=== PATIENT | male | born 1940 | race Caucasian/White ===

== ENCOUNTER → 2016-06-02 | Outpatient (REF) | payer MEDICARE, OTHER ==
[2016-06-02 18:41] LABS: ALBUMIN 4.1 GM/DL (3.2-5.2); ALBUMIN/GLOBULIN RATIO 1.32 (1.00-1.93); BILIRUBIN,TOTAL 0.6 MG/DL (0.2-1.0); CALCIUM LEVEL 8.7 MG/DL (8.8-10.2); CREATININE FOR GFR 1.29 MG/DL (0.70-1.30); GLOMERULAR FILTRATION RATE 57.8 (>42); POTASSIUM SERUM 4.9 MEQ/L (3.5-5.1); TOTAL PROTEIN 7.2 GM/DL (6.4-8.2)
== END ==
LOC: M SFHCCAPE 07:04
PROVIDERS: ATTEND Nurse Practitioner
DX: I10 Essential (primary) hypertension (principal)

== ENCOUNTER → 2016-11-30 | Outpatient (REF) | payer MEDICARE, OTHER ==
[2016-11-30 17:41] LABS: ALBUMIN 3.8 GM/DL (3.2-5.2); ALBUMIN/GLOBULIN RATIO 1.12 (1.00-1.93); BILIRUBIN,TOTAL 0.3 MG/DL (0.2-1.0); CALCIUM LEVEL 8.9 MG/DL (8.8-10.2); CREATININE FOR GFR 1.29 MG/DL (0.70-1.30); GLOMERULAR FILTRATION RATE 57.8 (>42); POTASSIUM SERUM 4.2 MEQ/L (3.5-5.1); TOTAL PROTEIN 7.2 GM/DL (6.4-8.2)
[2016-11-30 18:11] LABS: BASO % 0.6 % (0.0-1.0); EOS # 0.2 K/mm3 (0.0-0.50); EOS % 3.4 % (0.0-3.0); LARGE UNSTAINED CELL # 0.2 K/mm3 (0.0-0.4); LARGE UNSTAINED CELL % 2.8 % (0.0-4.0); LYMPH # 1.6 K/mm3 (1.5-4.5); LYMPH % 20.4 % (24.0-44.0); MEAN CORPUSCULAR HEMOGLOBIN 28.2 pg (27.0-33.0); MEAN CORPUSCULAR HGB CONC 33.3 g/dl (32.0-36.5); MEAN CORPUSCULAR VOLUME 84.7 fl (80.0-96.0); MONO # 0.7 K/mm3 (0.0-0.8); MONO % 9.8 % (0.0-5.0); NEUTROPHILS # 4.3 K/mm3 (1.8-7.7); PLATELET COUNT, AUTOMATED 270 k/mm3 (150-450); RED CELL DISTRIBUTION WIDTH 13.2 % (11.5-14.5); WHITE BLOOD COUNT 6.9 K/mm3 (4.0-10.0)
== END ==
LOC: M SFHCCAPE 07:17
PROVIDERS: ATTEND Physician Assistant
DX: I10 Essential (primary) hypertension (principal); Z12.5 Encounter for screening for malignant neoplasm of prostate
CPT/HCPCS: 36415; 80053; 80061; 84443; 85025; G0103

== ENCOUNTER → 2016-12-03 | Outpatient (REF) | payer MEDICARE, OTHER | LOC: M SMT 17:28 | PROVIDERS: ATTEND Urology | DX: R97.20 Elevated prostate specific antigen [PSA] (principal); Z79.899 Other long term (current) drug therapy | CPT/HCPCS: 81001; 87086; G0463 ==

== ENCOUNTER → 2017-01-15 | Outpatient (CLI) | payer MEDICARE, OTHER ==
--- NOTE | 2017-01-15 13:09 | REP ---
TRANSRECTAL ULTRASOUND PROSTATE WITH ULTRASOUND GUIDANCE FOR PROSTATE BIOPSY: Real-time sonographic evaluation of the prostate performed utilizing transrectal probe. Size of the gland is 4.7 x 5.3 x 5.2 cm for a total volume of 54.9 mL. There are nodular areas in the prostate, on the right four are identified ranging between 6 and 8 mm in diameter. On the left a nodular areas measures 7 x 5 mm. Seminal vesicles appear symmetrical. Ultrasound guidance was provided for Dr. Car who performed ultrasound guided biopsy of the prostate. Signed by Eze Goodwin MD 01/15/2017 05:49 P
== END ==
LOC: M SMT PRO 09:56
PROVIDERS: ATTEND Urology
DX: C61 Malignant neoplasm of prostate (principal)
CPT/HCPCS: 55700; 76872; 76942; G0416

== ENCOUNTER → 2017-01-22 | Outpatient (CLI) | payer MEDICARE, OTHER ==
--- NOTE | 2017-01-22 14:56 | REP ---
CHEST, TWO VIEWS: HISTORY: Prostate carcinoma. The lungs are clear. The heart is normal in size. The pulmonary vasculature is normal in appearance. Degenerative change is present in the thoracic spine. IMPRESSION: No acute disease. Unreviewed
[2017-01-22 17:05] LABS: CALCIUM LEVEL 9.2 MG/DL (8.8-10.2); CREATININE FOR GFR 1.54 MG/DL (0.70-1.30); GLOMERULAR FILTRATION RATE 47.1 (>42); POTASSIUM SERUM 5.1 MEQ/L (3.5-5.1)
== END ==
LOC: M SMT 11:20
PROVIDERS: ATTEND Nurse Practitioner Women's Health
DX: C61 Malignant neoplasm of prostate (principal)
CPT/HCPCS: 36415; 71020; 80048; G0463

== ENCOUNTER → 2017-01-29 | Outpatient (CLI) | payer MEDICARE, OTHER ==
[~2017-01-29] MED LIST: ISOVUE-370 76% 100ML VIAL (Q9967) As Ordered ONE
--- NOTE | 2017-01-29 11:17 | REP ---
CT ABDOMEN AND PELVIS WITHOUT WITH CONTRAST: 01/29/2017. Clinical history: Prostate carcinoma. Prior ruptured abdominal aortic aneurysm 2013. Comparison: 11/08/2013. Technique: Precontrast scanning followed by bolus of 100 ml Isovue 370 and scanning through the abdomen pelvis. Coronal and sagittal reconstructions provided. Delayed images through the abdomen. Orthopedic metal artifact reduction algorithm utilized due to a left total hip arthroplasty. Findings: CT abdomen: The lung bases show minor dependent atelectatic change and fibrosis without effusion, nodule, infiltrate or mass. Heart is not enlarged. Left atrium is marginal in size. No pericardial thickening or effusion. No hiatal hernia. I see no fatty infiltration of the liver. No hepatosplenomegaly, focal hepatic mass or intrahepatic biliary dilatation. There is one tiny hypodensity in the right lobe of the liver either small cyst or hemangioma, unchanged. The gallbladder now shows a few tiny layering hyperdense stones about 3 mm size. Adrenal glands are normal. Pancreas shows no mass or ductal dilatation. Kidneys show lobation. There is no stone on the precontrast images. I see no hydronephrosis, cyst, solid renal mass or perinephric fluid. Ureters are not dilated and show normal course to the bladder. On image 116 of series 301, images 76 and 77 of series 307, on image 67 and 68 of series 309 there is a oval 7.7 mm calcification. It superimposes perfectly over the distal ureter which is not dilated above it. It is at the bladder wall and suggests a distal ureteral stone at the UVJ. Small bowel loops are unremarkable. The colon shows stool and gas scattered without signs of colitis or diverticulitis in the abdomen proper. Lung windows reveal no sign of free air or perforation in the abdomen and pelvis. An elongated xyphoid process is noted anteriorly in the midline of the lower chest and upper abdomen, otherwise normal. The abdominal aorta shows evidence of an aortobiiliac graft without aneurysm. Multiple surgical clips. The lumen is filled with contrast. No periaortic or other retroperitoneal lymphadenopathy. Previous aneurysm repair and no evidence of a leak repair. CT pelvis. Bladder unremarkable. [place] artifact from the left total hip arthroplasty noted. There are degenerative changes at the right hip with acetabular subchondral cysts. loss of joint space and articular cartilage with rim osteophytes acetabulum and femoral head. Iliac bones intact. SI joints symmetric. Sacrum intact. Degenerative changes at the symphysis pubis without acute fracture of the pubic rami. There is old posttraumatic change of the superior pubic ramus on the left. No bladder wall thickening or mass. No stone in the bladder. There is a 7.7 mm oval stone at the UVJ on the right perfectly superimposed over the ureter course and therefore felt to be a nonobstructing distal ureteral stone. That ureter is otherwise normal. There is no ventral or inguinal hernia, although the omental fat distends the right inguinal canal. No inguinal adenopathy. Prostate is enlarged. It indents the bladder base and measures 5.2 cm transverse x 4.3 cm AP x 5.4 cm vertically. No other finding. Bone window review of all slices shows no destructive lesion that would suggest bony metastatic lesions in the hips, pelvis, sacrum, spine or ribs. Impression: 1. Enlarged prostate in this patient with known prostate carcinoma. It indents the bladder base. 2. No bony metastatic lesions are noted. There are degenerative changes throughout the spine and right hip and symphysis pubis. 3. Repair of the large leaking abdominal aortic aneurysm on the study 3 years ago with the graft well maintained and without leak or thrombus. It is widely patent. 4. No retroperitoneal or other intra-abdominal/pelvic adenopathy. 5. Cholelithiasis. 6. No hydronephrosis, hydroureter or renal stone disease. There appears to be a 7.7 mm stone at the UVJ on the right perfectly superimpose the course of the ureter but no ureteral dilatation. I suspect nonobstructing stone. Signed by Ross Baldwin MD 01/29/2017 05:31 P
--- NOTE | 2017-01-29 15:06 | REP ---
Whole body radionuclide bone scan: History: Prostate carcinoma. No comparison scintigraphy. Technique: 21.9 mCi technetium 99m MDP is injected and standard whole body imaging was acquired. Scintigraphic findings: There is uptake in bilateral kidneys and in the urinary bladder. There is photopenia in the area of the left hip prosthesis as expected. There is arthritic uptake bilaterally in the knees, wrists, and shoulders. Some degenerative uptake is seen in the thoracic spine. There is no evidence to suggest skeletal metastatic disease. Impression: No evidence of bony metastasis. Signed by David Rubin MD 01/29/2017 04:50 P
== END ==
LOC: M RAD 09:18
PROVIDERS: ATTEND Nurse Practitioner Women's Health
DX: C61 Malignant neoplasm of prostate (principal); K80.20 Calculus of gallbladder without cholecystitis without obstruction
CPT/HCPCS: 74178; 78306; A9503; Q9967

== ENCOUNTER → 2017-03-03 | Outpatient (REF) | payer MEDICARE, OTHER ==
[2017-03-03 16:53] LABS: ALBUMIN 4.2 GM/DL (3.2-5.2); ALBUMIN/GLOBULIN RATIO 1.14 (1.00-1.93); BILIRUBIN,TOTAL 0.5 MG/DL (0.2-1.0); CALCIUM LEVEL 8.8 MG/DL (8.8-10.2); CREATININE FOR GFR 1.4 MG/DL (0.70-1.30); GLOMERULAR FILTRATION RATE 52.6 (>42); POTASSIUM SERUM 4.8 MEQ/L (3.5-5.1); TOTAL PROTEIN 7.9 GM/DL (6.4-8.2)
[2017-03-03 17:49] LABS: BASO # 0.1 10^3/uL (0.0-0.2); BASO % 0.7 % (0.0-1.0); EOS # 0.3 10^3/uL (0.0-0.50); EOS % 3.1 % (0.0-3.0); IMMATURE GRANULOCYTE % 1.4 % (0-0); LYMPH # 1.2 10^3/uL (1.5-4.5); LYMPH % 14.5 % (24.0-44.0); MEAN CORPUSCULAR HEMOGLOBIN 27.5 pg (27.0-33.0); MEAN CORPUSCULAR HGB CONC 33.1 g/dl (32.0-36.5); MEAN CORPUSCULAR VOLUME 83.1 fl (80.0-96.0); MONO # 0.9 10^3/uL (0.0-0.8); MONO % 10.9 % (0.0-5.0); NEUTROPHILS # 5.7 10^3/uL (1.8-7.7); NEUTROPHILS % 69.4 % (36.0-66.0); PLATELET COUNT, AUTOMATED 304 10^3/uL (150-450); RED CELL DISTRIBUTION WIDTH 13.2 % (11.5-14.5); WHITE BLOOD COUNT 8.1 10^3/uL (4.0-10.0)
== END ==
LOC: M SFHCCAPE 07:02
PROVIDERS: ATTEND Physician Assistant
DX: I10 Essential (primary) hypertension (principal)

== ENCOUNTER → 2017-03-04 | Outpatient (REF) | payer MEDICARE, OTHER ==
[~2017-03-04] MED LIST changes: +AMLO10TA PO; +ASPI325T PO; +CENTTAB PO; +FURO40TA2 PO; -ISOVUE-370 76% 100ML VIAL (Q9967) As Ordered ONE; +LISI10TA4 PO; +LOVA40TA PO; +METO25TA4 PO
[2017-03-04 18:27] LABS: CREATININE FOR GFR 1.44 MG/DL (0.70-1.30); GLOMERULAR FILTRATION RATE 50.9 (>42); POTASSIUM SERUM 4.9 MEQ/L (3.5-5.1)
[2017-03-04 18:32] LABS: INR 0.96
[2017-03-04 19:46] LABS: MEAN CORPUSCULAR HEMOGLOBIN 26.9 pg (27.0-33.0); MEAN CORPUSCULAR HGB CONC 32.3 g/dl (32.0-36.5); MEAN CORPUSCULAR VOLUME 83.3 fl (80.0-96.0); PLATELET COUNT, AUTOMATED 313 10^3/uL (150-450); RED CELL DISTRIBUTION WIDTH 13.2 % (11.5-14.5); WHITE BLOOD COUNT 8.3 10^3/uL (4.0-10.0)
== END ==
LOC: M LABSMT 07:10
PROVIDERS: ATTEND Urology
DX: Z01.818 Encounter for other preprocedural examination (principal); N20.1 Calculus of ureter; C61 Malignant neoplasm of prostate; I65.29 Occlusion and stenosis of unspecified carotid artery

== ENCOUNTER → 2017-03-10 | Day surgery (SDC) | payer MEDICARE, OTHER ==
[~2017-03-10] VITALS: Ht 167.6 cm; Wt 102.1 kg
[~2017-03-10] MED LIST changes: +ACETAMINOPHEN 650MG ER TAB (TYLENOL ARTHRITIS) PO PRN; +CIPR500T3 PO; +CIPROFLOXACIN 500 MG TAB PO SCH; +CONRAY-60 60% 50ML VIAL (Q9961) As Ordered ONE; +LIDOCAINE 1% MDV 20ML VIAL SQ PRN; +LIDOCAINE 2% INJ 100 MG/5 ML SDV (FOR ANES.) As Ordered ONE; +LR 1,000 ML IV ONE; +LR 1,000 ML IV SCH; +MIDAZOLAM INJ 2 MG/2 ML VIAL (J2250) As Ordered ONE; +NORCO, ANEXSIA 5/325MG TABLET (HYDROcodone/ACETAMINOPHEN) PO PRN; +ONDANSETRON 4MG/2ML VIAL (J2405) As Ordered ONE; +ONDANSETRON 4MG/2ML VIAL (J2405) IV PRN; +PROPOFOL 200 MG/20 ML VIAL As Ordered ONE; +SEVOFLURANE INHAL SOLN 250 ML BTL As Ordered ONE; +TYLE650T35 PO; +ceFAZolin 2 GM/D5W 50 ML IV BAG (J0690 PER 500MG) As Ordered ONE; +fentaNYL 100 MCG/2 ML INJECTION (J3010) As Ordered ONE; +fentaNYL 100 MCG/2 ML INJECTION (J3010) IV PRN
[2017-03-10 15:30] VITALS: BP 128/86
--- NOTE | 2017-03-10 20:21 | REP ---
Retrograde pyelogram: Two views. History: Right stent placement. 25 seconds of fluoroscopy time is reported. Findings: A sequence of two last image hold fluoroscopic spot radiographs of the right abdomen document right ureteral contrast injection and double pigtail stent placement. Signed by David Rubin MD 03/11/2017 08:07 A
--- NOTE | 2017-03-12 19:08 | RO ---
DATE OF PROCEDURE: 03/10/2017 PREPROCEDURE DIAGNOSIS: Right distal ureteral stone. POSTPROCEDURE DIAGNOSIS: Right distal ureteral stone. 7 mm right distal ureteral stone. PROCEDURE: Cystoscopy, plus right retrograde pyelogram, plus right ureteroscopy - semirigid, plus laser stone lithotripsy, Holmium laser, plus basket extraction of stones, plus right double J stent placement, #6-[place]can [place] Cook. SURGEON: Ubaldo Car MD PUSH BUTTON SWITCH ASSEMBLER: None. ANESTHESIA: General. COMPLICATIONS: None. ESTIMATED BLOOD LOSS: Minimal. HISTORY OF PRESENT ILLNESS: A 76-year-old male patient with a history of prostate cancer. During the staging and ordering a CT scan of the abdomen and pelvis, a 7 mm stone was found in the right distal ureter with mild hydronephrosis. The patient had no pain at all. For this reason, we actually consented him for cystoscopy, plus right retrograde pyelogram, plus right ureteroscopy, plus laser stone lithotripsy, plus basket extraction of stones, plus right double J stent placement. The patient has consented, signed the consent form, and we are taking him to surgery today. DESCRIPTION OF PROCEDURE: In a patient under general anesthesia in supine modified low lithotomy position, after prepping and draping the area of concern, which included the entire genitalia and abdomen, we introduced the #22-Moroccan cystoscope with 30-degree lens under videoendoscopic guidance. The fossa navicularis, penile urethra, bulbar urethra and membranous urethra were totally normal. Prostatic urethra had lateral lobes touching and rising small middle lobe. Both ureteral orifices were seen. There were no tumors in the bladder, no stones in the bladder, no foreign objects. At that moment in time, we grabbed a #5-Moroccan Pollack catheter, catheterized the right ureteral orifice and placed a guidewire up to the kidney. We took the Pollack catheter out and cystoscope out and then proceeded to actually place a semirigid ureteroscope, #7-Moroccan in diameter. Following the guidewire, we went into the ureteral orifice and the distal ureteral orifice. In the distal ureter, we found a 7 mm stone. We then took the guidewire out and passed a 300 Micron probe, holmium laser and lasered the stone into multiple fragments. We then took the laser probe out and with a 1.8 Moroccan ZeroTip basket, we actually grabbed the stones one by one and put into the bladder. Once the ureter was free of stones, we actually took the ureteroscope out, placed the cystoscope, drained the bladder, with an Ellik evacuator took all the pieces out. The stones were sent for permanent biochemical analysis. We then passed a Pollack catheter and performed a retrograde to see if there were some other stones. There were no other stones. At that moment in time, we passed a guidewire up to the kidney, took the Pollack catheter out and passed a double J stent, #6-[place]can [place] Cook up to the kidney. Once the stent was in good position, we took the guidewire out. We could see the curl in the kidney, curl in the bladder. We then emptied the bladder and took the cystoscope out. PLAN: The patient will go home today with antibiotic pain medication, followup in 1 week at [facility] for removal of right double J stent. We will have to also schedule management of his prostate cancer, which is pending. GLEN
== END | disposition home or self-care (01) ==
LOC: M SDC 10:35
PROVIDERS: ATTEND Urology
DX: N20.1 Calculus of ureter (principal); N13.30 Unspecified hydronephrosis; I10 Essential (primary) hypertension; K21.9 Gastro-esophageal reflux disease without esophagitis; E78.5 Hyperlipidemia, unspecified; I65.29 Occlusion and stenosis of unspecified carotid artery; M17.0 Bilateral primary osteoarthritis of knee; M19.079 Primary osteoarthritis, unspecified ankle and foot; N40.1 Benign prostatic hyperplasia with lower urinary tract symptoms; Z79.899 Other long term (current) drug therapy; Z79.82 Long term (current) use of aspirin
CPT/HCPCS: 36415; 52356; 74420; 82360; 86850; 86900; 86901; 88300; C1769; C2617; J0690; J2250; J2405; J3010; Q9961

== ENCOUNTER 2017-03-14 15:10 | Emergency (ER) | payer MEDICARE, OTHER ==
[2017-03-14] MEDS: NS 1,000 ML IV (16:15)
[2017-03-14 16:49] LABS: BASO % 0.6 % (0.0-1.0); EOS # 0.4 10^3/uL (0.0-0.50); EOS % 5.7 % (0.0-3.0); IMMATURE GRANULOCYTE # 0.1 10^3/uL (0-0); IMMATURE GRANULOCYTE % 0.7 % (0-0); LYMPH # 1.1 10^3/uL (1.5-4.5); LYMPH % 16.7 % (24.0-44.0); MEAN CORPUSCULAR HEMOGLOBIN 27.3 pg (27.0-33.0); MEAN CORPUSCULAR HGB CONC 33.2 g/dl (32.0-36.5); MEAN CORPUSCULAR VOLUME 82.2 fl (80.0-96.0); MONO # 0.8 10^3/uL (0.0-0.8); MONO % 11.8 % (0.0-5.0); NEUTROPHILS # 4.3 10^3/uL (1.8-7.7); NEUTROPHILS % 64.5 % (36.0-66.0); PLATELET COUNT, AUTOMATED 236 10^3/uL (150-450); RED CELL DISTRIBUTION WIDTH 13.3 % (11.5-14.5); WHITE BLOOD COUNT 6.7 10^3/uL (4.0-10.0)
[2017-03-14 16:55] LABS: BLOOD URINE MANUAL RFX POSITIVE (NEGATIVE); NITRITE, URINE MANUAL RFX NEGATIVE (NEGATIVE)
[2017-03-14 16:56] LABS: BACTERIA, URINE NONE SEEN; HYALINE CAST, URINE NONE SEEN /lpf (0-1); MICROSCOPIC EXAM PERFORMED; RBC, URINE TNTC /hpf (0-3); SQUAMOUS EPITHELIAL CELL URINE NONE SEEN /hpf (SMALL AMT); WBC, URINE NONE SEEN /hpf (0-3)
[2017-03-14 18:28] LABS: ALBUMIN/GLOBULIN RATIO 1.07 (1.00-1.93); ALKALINE PHOSPHATASE 83 U/L (45-117); ALT/SGPT 24 U/L (12-78); ANION GAP 8 MEQ/L (8-16); AST/SGOT 37 U/L (7-37); BILIRUBIN,DIRECT < 0.1 MG/DL (0.0-0.2); BILIRUBIN,TOTAL 0.2 MG/DL (0.2-1.0); BLOOD UREA NITROGEN 22 MG/DL (7-18); CALCIUM LEVEL 7.4 MG/DL (8.8-10.2); CARBON DIOXIDE LEVEL 22 MEQ/L (21-32); CHLORIDE LEVEL 111 MEQ/L (98-107); CREATININE FOR GFR 1.17 MG/DL (0.70-1.30); GLOMERULAR FILTRATION RATE > 60.0 (>42); GLUCOSE, FASTING 91 MG/DL (83-110); POTASSIUM SERUM 4.5 MEQ/L (3.5-5.1); SODIUM LEVEL 141 MEQ/L (136-145); TOTAL PROTEIN 5.8 GM/DL (6.4-8.2)
== END 2017-03-14 18:53 | disposition home or self-care (01) ==
LOC: M ED 15:10
DX: R31.0 Gross hematuria (principal); C61 Malignant neoplasm of prostate
CPT/HCPCS: 80076

== ENCOUNTER → 2017-03-30 | Outpatient (REF) | payer MEDICARE, OTHER ==
[2017-03-30 18:11] LABS: APPEARANCE, URINE CLEAR (CLEAR); BACTERIA, URINE AUTO NEGATIVE (NEGATIVE); BILIRUBIN, URINE AUTO NEGATIVE (NEGATIVE); BLOOD, URINE BLOOD NEGATIVE (NEGATIVE); COLOR, URINE YELLOW (YELLOW); GLUCOSE, URINE (UA) AUTO NEGATIVE (NEGATIVE); KETONE, URINE AUTO NEGATIVE (NEGATIVE); LEUKOCYTE ESTERASE, URINE AUTO NEGATIVE (NEGATIVE); MUCUS, URINE SMALL (NEGATIVE); NITRITE, URINE AUTO NEGATIVE (NEGATIVE); PROTEIN, URINE AUTO NEGATIVE (NEGATIVE); RBC, URINE AUTO 1 /HPF (0-3); SPECIFIC GRAVITY URINE AUTO 1.019 (1.002-1.035); SQUAMOUS EPITHELIAL CELL UR AU 0 /HPF (0-6); UROBILINOGEN, URINE AUTO 0.2 mg/dL (0.0-2.0); WBC, URINE AUTO 1 /HPF (0-3)
== END ==
LOC: M SFHCCAPE 13:45
DX: Z46.6 Encounter for fitting and adjustment of urinary device (principal)
CPT/HCPCS: 81001

== ENCOUNTER 2017-04-17 06:37 | Emergency (ER) | payer MEDICARE, OTHER ==
[2017-04-17] MEDS: KETOROLAC 60 MG/2 ML VIAL (J1885) IM (07:43)
[2017-04-17] MEDS: CYCLOBENZAPRINE 10 MG TAB PO (07:43)
== END 2017-04-17 10:27 | disposition home or self-care (01) ==
LOC: M ED 06:37
DX: S29.002A Unspecified injury of muscle and tendon of back wall of thorax, initial encounter (principal); X58.XXXA Exposure to other specified factors, initial encounter; Y92.89 Other specified places as the place of occurrence of the external cause; I10 Essential (primary) hypertension; E78.5 Hyperlipidemia, unspecified; C61 Malignant neoplasm of prostate; Z87.442 Personal history of urinary calculi; Z79.899 Other long term (current) drug therapy
CPT/HCPCS: J1885

== ENCOUNTER → 2017-04-22 | Outpatient (CLI) | payer MEDICARE, OTHER | LOC: M ONCR 10:20 | DX: C61 Malignant neoplasm of prostate (principal) | CPT/HCPCS: G0463 ==

== ENCOUNTER → 2017-05-03 | Outpatient (REF) | payer MEDICARE, OTHER ==
[2017-05-06 00:07] LABS: PSA % FREE 13.2 % (.); PSA FREE 1.31 ng/mL; PSA TOTAL 9.9 ng/mL (0.0-4.0); TESTOSTERONE FREE (DIRECT) 3.4 pg/mL (6.6-18.1)
== END ==
LOC: M SFHCCAPE 07:04
DX: C61 Malignant neoplasm of prostate (principal)
CPT/HCPCS: 84403

== ENCOUNTER → 2017-05-14 | Outpatient (CLI) | payer MEDICARE, OTHER | LOC: M SMT PRO 09:22 | DX: C61 Malignant neoplasm of prostate (principal); Z79.899 Other long term (current) drug therapy | CPT/HCPCS: 55876; A4648 ==

== ENCOUNTER 2017-05-27 14:19 | Outpatient (RCR) | payer MEDICARE, OTHER | END 2017-06-19 | LOC: M ONCR 14:19 | DX: C61 Malignant neoplasm of prostate (principal) | CPT/HCPCS: 77300 ==

== ENCOUNTER → 2017-05-27 | Outpatient (CLI) | payer MEDICARE, OTHER ==
[2017-05-27 14:56] LABS: HEMATOCRIT 38.2 % (42.0-52.0); HEMOGLOBIN 12.4 g/dl (14.0-18.0); MEAN CORPUSCULAR HEMOGLOBIN 26.4 pg (27.0-33.0); MEAN CORPUSCULAR HGB CONC 32.5 g/dl (32.0-36.5); MEAN CORPUSCULAR VOLUME 81.4 fl (80.0-96.0); PLATELET COUNT, AUTOMATED 265 10^3/uL (150-450); RED BLOOD COUNT 4.69 10^6/uL (4.30-6.10); RED CELL DISTRIBUTION WIDTH 13.5 % (11.5-14.5)
== END ==
LOC: M RAD 13:56
DX: C61 Malignant neoplasm of prostate (principal)
CPT/HCPCS: 85027

== ENCOUNTER → 2017-06-01 | Outpatient (REF) | payer MEDICARE, OTHER ==
[2017-06-01 18:04] LABS: BASO # 0.1 10^3/uL (0.0-0.2); BASO % 0.7 % (0.0-1.0); EOS # 0.4 10^3/uL (0.0-0.50); EOS % 5.2 % (0.0-3.0); HEMATOCRIT 39.4 % (42.0-52.0); HEMOGLOBIN 12.9 g/dl (14.0-18.0); IMMATURE GRANULOCYTE % 1.4 % (0-3.0); LYMPH # 1.4 10^3/uL (1.5-4.5); LYMPH % 20.4 % (24.0-44.0); MEAN CORPUSCULAR HEMOGLOBIN 26.7 pg (27.0-33.0); MEAN CORPUSCULAR HGB CONC 32.7 g/dl (32.0-36.5); MEAN CORPUSCULAR VOLUME 81.4 fl (80.0-96.0); MONO # 0.8 10^3/uL (0.0-0.8); MONO % 11.6 % (0.0-5.0); NEUTROPHILS # 4.2 10^3/uL (1.8-7.7); NEUTROPHILS % 60.7 % (36.0-66.0); PLATELET COUNT, AUTOMATED 279 10^3/uL (150-450); RED BLOOD COUNT 4.84 10^6/uL (4.30-6.10); RED CELL DISTRIBUTION WIDTH 13.4 % (11.5-14.5); WHITE BLOOD COUNT 6.9 10^3/uL (4.0-10.0)
[2017-06-01 18:11] LABS: ALBUMIN 4.1 GM/DL (3.2-5.2); ALBUMIN/GLOBULIN RATIO 1.21 (1.00-1.93); ALKALINE PHOSPHATASE 120 U/L (45-117); ALT/SGPT 25 U/L (12-78); ANION GAP 9 MEQ/L (8-16); AST/SGOT 19 U/L (7-37); BILIRUBIN,TOTAL 0.3 MG/DL (0.2-1.0); BLOOD UREA NITROGEN 40 MG/DL (7-18); CALCIUM LEVEL 9.2 MG/DL (8.8-10.2); CARBON DIOXIDE LEVEL 28 MEQ/L (21-32); CHLORIDE LEVEL 101 MEQ/L (98-107); CHOLESTEROL LEVEL 252 MG/DL (<200); CHOLESTEROL RISK RATIO 4.421 (<5); CREATININE FOR GFR 1.28 MG/DL (0.70-1.30); GLOMERULAR FILTRATION RATE 58.2 (>42); GLUCOSE, FASTING 84 MG/DL (70-100); HDL CHOLESTEROL 57 MG/DL (>40); NON-HDL-C 195 MG/DL; POTASSIUM SERUM 4.8 MEQ/L (3.5-5.1); SODIUM LEVEL 138 MEQ/L (136-145); TOTAL PROTEIN 7.5 GM/DL (6.4-8.2); TRIGLYCERIDES LEVEL 215 MG/DL (<150)
[2017-06-01 19:12] LABS: ESTIMATED AVERAGE GLUCOSE 137 MG/DL (60-110); HEMOGLOBIN A1c 6.4 %
== END ==
LOC: M SFHCCAPE 07:20
DX: E78.5 Hyperlipidemia, unspecified (principal); Z79.899 Other long term (current) drug therapy
CPT/HCPCS: 84443

== ENCOUNTER 2017-06-21 11:39 | Outpatient (RCR) | payer MEDICARE, OTHER | END 2017-07-19 | LOC: M ONCR 11:39 | DX: C61 Malignant neoplasm of prostate (principal) | CPT/HCPCS: 77300 ==

== ENCOUNTER 2017-07-20 11:11 | Outpatient (RCR) | payer MEDICARE, OTHER | END 2017-08-19 | LOC: M ONCR 11:11 | DX: C61 Malignant neoplasm of prostate (principal) | CPT/HCPCS: 77336 ==

== ENCOUNTER → 2017-08-18 | Outpatient (REF) | payer MEDICARE, OTHER ==
[2017-08-20 14:17] LABS: PSA TOTAL 0.3 ng/mL (0.0-4.0)
== END ==
LOC: M SFHCCAPE 07:28
DX: C61 Malignant neoplasm of prostate (principal)
CPT/HCPCS: 84154

== ENCOUNTER → 2017-09-08 | Outpatient (CLI) | payer MEDICARE, OTHER | LOC: M ONCR 11:35 | DX: C61 Malignant neoplasm of prostate (principal) ==

== ENCOUNTER → 2017-09-14 | Outpatient (REF) | payer MEDICARE, OTHER ==
[2017-09-14 17:10] LABS: ESTIMATED AVERAGE GLUCOSE 114 MG/DL (60-110); HEMOGLOBIN A1c 5.6 %
[2017-09-14 17:16] LABS: ALBUMIN 3.8 GM/DL (3.2-5.2); ALBUMIN/GLOBULIN RATIO 1.15 (1.00-1.93); ALKALINE PHOSPHATASE 110 U/L (45-117); ALT/SGPT 24 U/L (12-78); ANION GAP 11 MEQ/L (8-16); AST/SGOT 14 U/L (7-37); BILIRUBIN,TOTAL 0.4 MG/DL (0.2-1.0); BLOOD UREA NITROGEN 31 MG/DL (7-18); CALCIUM LEVEL 8.5 MG/DL (8.8-10.2); CARBON DIOXIDE LEVEL 27 MEQ/L (21-32); CHLORIDE LEVEL 101 MEQ/L (98-107); CHOLESTEROL LEVEL 222 MG/DL (<200); CHOLESTEROL RISK RATIO 3.415 (<5); CREATININE FOR GFR 1.19 MG/DL (0.70-1.30); GLOMERULAR FILTRATION RATE > 60.0 (>42); GLUCOSE, FASTING 90 MG/DL (70-100); HDL CHOLESTEROL 65 MG/DL (>40); LDL CHOLESTEROL 115.2 MG/DL (<100); NON-HDL-C 157 MG/DL; POTASSIUM SERUM 4.3 MEQ/L (3.5-5.1); PROSTATIC SPECIFIC AG MONITOR 0.29 NG/ML (< 4.0); SODIUM LEVEL 139 MEQ/L (136-145); TOTAL PROTEIN 7.1 GM/DL (6.4-8.2); TRIGLYCERIDES LEVEL 209 MG/DL (<150)
== END ==
LOC: M SFHCCAPE 07:02
DX: C61 Malignant neoplasm of prostate (principal); I10 Essential (primary) hypertension; E78.5 Hyperlipidemia, unspecified; R73.01 Impaired fasting glucose
CPT/HCPCS: 80053

== ENCOUNTER → 2017-11-23 | Outpatient (REF) | payer MEDICARE, OTHER ==
[2017-11-23 20:20] LABS: PROSTATIC SPECIFIC AG MONITOR 0.09 NG/ML (< 4.0)
== END ==
LOC: M LABDRWCV 19:57
DX: R97.20 Elevated prostate specific antigen [PSA] (principal); Z85.46 Personal history of malignant neoplasm of prostate
CPT/HCPCS: 84153

== ENCOUNTER → 2017-11-23 | Outpatient (REF) | payer MEDICARE, OTHER ==
[2017-11-23 21:03] LABS: PROSTATIC SPECIFIC AG MONITOR 0.09 NG/ML (< 4.0)
== END ==
LOC: M LABSMT 07:10
DX: R97.20 Elevated prostate specific antigen [PSA] (principal); Z85.46 Personal history of malignant neoplasm of prostate
CPT/HCPCS: 84153

== ENCOUNTER → 2017-12-14 | Outpatient (REF) | payer MEDICARE, OTHER ==
[2017-12-14 17:59] LABS: BASO % 0.6 % (0.0-1.0); EOS # 0.3 10^3/uL (0.0-0.50); EOS % 4.2 % (0.0-3.0); HEMATOCRIT 34.2 % (42.0-52.0); HEMOGLOBIN 11.3 g/dl (13.5-17.5); IMMATURE GRANULOCYTE % 3.8 % (0-3.0); LYMPH # 0.8 10^3/uL (1.5-4.5); LYMPH % 12.1 % (24.0-44.0); MEAN CORPUSCULAR HEMOGLOBIN 28.7 pg (27.0-33.0); MEAN CORPUSCULAR VOLUME 86.8 fl (80.0-96.0); MONO # 0.7 10^3/uL (0.0-0.8); MONO % 10.5 % (0.0-5.0); NEUTROPHILS # 4.7 10^3/uL (1.8-7.7); NEUTROPHILS % 68.8 % (36.0-66.0); PLATELET COUNT, AUTOMATED 256 10^3/uL (150-450); RED BLOOD COUNT 3.94 10^6/uL (4.30-6.10); RED CELL DISTRIBUTION WIDTH 14.1 % (11.5-14.5); WHITE BLOOD COUNT 6.9 10^3/uL (4.0-10.0)
[2017-12-14 19:01] LABS: ALBUMIN 3.7 GM/DL (3.2-5.2); ALBUMIN/GLOBULIN RATIO 1.28 (1.00-1.93); ALKALINE PHOSPHATASE 97 U/L (45-117); ALT/SGPT 23 U/L (12-78); ANION GAP 12 MEQ/L (8-16); AST/SGOT 14 U/L (7-37); BILIRUBIN,TOTAL 0.5 MG/DL (0.2-1.0); BLOOD UREA NITROGEN 29 MG/DL (7-18); CALCIUM LEVEL 8.8 MG/DL (8.8-10.2); CARBON DIOXIDE LEVEL 26 MEQ/L (21-32); CHLORIDE LEVEL 101 MEQ/L (98-107); CHOLESTEROL LEVEL 225 MG/DL (<200); CHOLESTEROL RISK RATIO 3.629 (<5); CREATININE FOR GFR 1.29 MG/DL (0.70-1.30); GLOMERULAR FILTRATION RATE 57.6 (>42); GLUCOSE, FASTING 97 MG/DL (70-100); HDL CHOLESTEROL 62 MG/DL (>40); LDL CHOLESTEROL 130 MG/DL (<100); NON-HDL-C 163 MG/DL; POTASSIUM SERUM 4.5 MEQ/L (3.5-5.1); SODIUM LEVEL 139 MEQ/L (136-145); TOTAL PROTEIN 6.6 GM/DL (6.4-8.2); TRIGLYCERIDES LEVEL 165 MG/DL (<150)
[2017-12-14 22:22] LABS: ESTIMATED AVERAGE GLUCOSE 126 MG/DL (60-110)
== END ==
LOC: M SFHCCAPE 07:34
DX: I10 Essential (primary) hypertension (principal); E78.5 Hyperlipidemia, unspecified
CPT/HCPCS: 84443

== ENCOUNTER → 2017-12-23 | Outpatient (CLI) | payer MEDICARE, OTHER | LOC: M CLY 15:15 | DX: R06.02 Shortness of breath (principal) | CPT/HCPCS: 71046 ==

== ENCOUNTER → 2018-01-19 | Outpatient (CLI) | payer MEDICARE, OTHER | LOC: M RAD 16:17 | DX: R60.9 Edema, unspecified (principal); M71.21 Synovial cyst of popliteal space [Baker], right knee | CPT/HCPCS: 93970 ==

== ENCOUNTER → 2018-01-28 | Outpatient (CLI) | payer MEDICARE, OTHER | LOC: M SMT 09:35 | DX: N28.1 Cyst of kidney, acquired (principal) | CPT/HCPCS: 76770 ==

== ENCOUNTER → 2018-02-21 | Outpatient (REF) | payer MEDICARE, OTHER ==
[2018-02-21 17:24] LABS: PROSTATIC SPECIFIC AG MONITOR 0.1 NG/ML (< 4.0)
== END ==
LOC: M SFHCCAPE 07:26
DX: Z85.46 Personal history of malignant neoplasm of prostate (principal)
CPT/HCPCS: 84153

== ENCOUNTER → 2018-03-02 | Outpatient (CLI) | payer MEDICARE, OTHER | LOC: M ONCR 10:01 | DX: C61 Malignant neoplasm of prostate (principal) | CPT/HCPCS: G0463 ==

== ENCOUNTER → 2018-05-25 | Outpatient (REF) | payer MEDICARE, OTHER ==
[~2018-05-25] MED LIST changes: -ACETAMINOPHEN 650MG ER TAB (TYLENOL ARTHRITIS) PO PRN; -CIPROFLOXACIN 500 MG TAB PO SCH; -CONRAY-60 60% 50ML VIAL (Q9961) As Ordered ONE; +IBUP-1022 PO; -LIDOCAINE 1% MDV 20ML VIAL SQ PRN; -LIDOCAINE 2% INJ 100 MG/5 ML SDV (FOR ANES.) As Ordered ONE; -LR 1,000 ML IV ONE; -LR 1,000 ML IV SCH; -MIDAZOLAM INJ 2 MG/2 ML VIAL (J2250) As Ordered ONE; -NORCO, ANEXSIA 5/325MG TABLET (HYDROcodone/ACETAMINOPHEN) PO PRN; +NORCOTAB PO; -ONDANSETRON 4MG/2ML VIAL (J2405) As Ordered ONE; -ONDANSETRON 4MG/2ML VIAL (J2405) IV PRN; -PROPOFOL 200 MG/20 ML VIAL As Ordered ONE; -SEVOFLURANE INHAL SOLN 250 ML BTL As Ordered ONE; -ceFAZolin 2 GM/D5W 50 ML IV BAG (J0690 PER 500MG) As Ordered ONE; -fentaNYL 100 MCG/2 ML INJECTION (J3010) As Ordered ONE; -fentaNYL 100 MCG/2 ML INJECTION (J3010) IV PRN
[2018-05-25 20:21] LABS: APPEARANCE, URINE CLEAR (CLEAR); BACTERIA, URINE AUTO NEGATIVE (NEGATIVE); BILIRUBIN, URINE AUTO NEGATIVE (NEGATIVE); BLOOD, URINE BLOOD NEGATIVE (NEGATIVE); COLOR, URINE STRAW (YELLOW); GLUCOSE, URINE (UA) AUTO NEGATIVE (NEGATIVE); KETONE, URINE AUTO NEGATIVE (NEGATIVE); LEUKOCYTE ESTERASE, URINE AUTO NEGATIVE (NEGATIVE); MUCUS, URINE SMALL (NEGATIVE); NITRITE, URINE AUTO NEGATIVE (NEGATIVE); PROTEIN, URINE AUTO NEGATIVE (NEGATIVE); RBC, URINE AUTO 0 /HPF (0-3); SQUAMOUS EPITHELIAL CELL UR AU 0 /HPF (0-6); UROBILINOGEN, URINE AUTO 0.2 mg/dL (0.0-2.0); WBC, URINE AUTO 1 /HPF (0-3)
== END ==
LOC: M LABDRWCV 16:42
PROVIDERS: ATTEND Internal Medicine Cardiovascular Disease
DX: R80.9 Proteinuria, unspecified (principal)

== ENCOUNTER → 2018-08-23 | Outpatient (REF) | payer MEDICARE, OTHER ==
[~2018-08-23] MED LIST changes: +ASPI-1 PO; -ASPI325T PO; +HYDR-3715 PO; -NORCOTAB PO
== END ==
LOC: M SFHCCAPE 07:07
PROVIDERS: ATTEND Urology
DX: C61 Malignant neoplasm of prostate (principal)

== ENCOUNTER → 2018-09-05 | Outpatient (REF) | payer MEDICARE, OTHER ==
[2018-09-05 16:45] LABS: BASO % 0.7 % (0.0-1.0); EOS # 0.3 10^3/uL (0.0-0.50); EOS % 4.7 % (0.0-3.0); HEMATOCRIT 39.9 % (42.0-52.0); HEMOGLOBIN 12.9 g/dl (13.5-17.5); LYMPH % 17.9 % (24.0-44.0); MEAN CORPUSCULAR HEMOGLOBIN 27.3 pg (27.0-33.0); MEAN CORPUSCULAR HGB CONC 32.3 g/dl (32.0-36.5); MEAN CORPUSCULAR VOLUME 84.4 fl (80.0-96.0); MONO # 0.7 10^3/uL (0.0-0.8); MONO % 12.7 % (0.0-5.0); NEUTROPHILS # 3.5 10^3/uL (1.8-7.7); NEUTROPHILS % 62.7 % (36.0-66.0); PLATELET COUNT, AUTOMATED 273 10^3/uL (150-450); RED BLOOD COUNT 4.73 10^6/uL (4.30-6.10); WHITE BLOOD COUNT 5.6 10^3/uL (4.0-10.0)
[2018-09-05 17:12] LABS: ALBUMIN 3.5 GM/DL (3.2-5.2); ALT/SGPT 23 U/L (12-78); BILIRUBIN,TOTAL 0.3 MG/DL (0.2-1.0); BLOOD UREA NITROGEN 24 MG/DL (7-18); CALCIUM LEVEL 9.5 MG/DL (8.8-10.2); CARBON DIOXIDE LEVEL 29 MEQ/L (21-32); CHLORIDE LEVEL 104 MEQ/L (98-107); CHOLESTEROL LEVEL 234 MG/DL (<200); CHOLESTEROL RISK RATIO 4.333 (<5); CREATININE FOR GFR 1.12 MG/DL (0.70-1.30); FERRITIN 106 NG/ML (26-388); GLOMERULAR FILTRATION RATE > 60.0 (>42); GLUCOSE, FASTING 99 MG/DL (70-100); HDL CHOLESTEROL 54 MG/DL (>40); IRON (FE) 53 UG/DL (65-175); LDL CHOLESTEROL 138 MG/DL (<100); NON-HDL-C 180 MG/DL; PERCENT SATURATION 16.8 % (19.7-50.0); POTASSIUM SERUM 4.2 MEQ/L (3.5-5.1); SODIUM LEVEL 141 MEQ/L (136-145); TOTAL IRON BINDING CAPACITY 316 UG/DL (250-450); TRIGLYCERIDES LEVEL 212 MG/DL (<150)
[2018-09-05 17:40] LABS: HEMOGLOBIN A1c 6.4 %
== END ==
LOC: M SFHCCAPE 07:04
PROVIDERS: ATTEND Urology
DX: I10 Essential (primary) hypertension (principal); R73.01 Impaired fasting glucose; E78.5 Hyperlipidemia, unspecified

== ENCOUNTER → 2018-12-26 | Outpatient (CLI) | payer MEDICARE, OTHER ==
[~2018-12-26] MED LIST changes: +ALEV220T22 PO; +ATOR40TA75 PO; +SPIR-10 PO
[2018-12-26 08:42] LABS: HEMOGLOBIN 12.5 g/dl (13.5-17.5); MEAN CORPUSCULAR HEMOGLOBIN 27.2 pg (27.0-33.0); MEAN CORPUSCULAR HGB CONC 32.1 g/dl (32.0-36.5); MEAN CORPUSCULAR VOLUME 84.8 fl (80.0-96.0); PLATELET COUNT, AUTOMATED 223 10^3/uL (150-450); WHITE BLOOD COUNT 4.4 10^3/uL (4.0-10.0)
[2018-12-26 08:53] LABS: INR 1.08; PROTHROMBIN TIME 13.8 SECONDS (11.8-14.0)
[2018-12-26 09:17] LABS: ALBUMIN 3.9 GM/DL (3.2-5.2); ALT/SGPT 25 U/L (12-78); BILIRUBIN,TOTAL 0.4 MG/DL (0.2-1.0); BLOOD UREA NITROGEN 31 MG/DL (7-18); CALCIUM LEVEL 9.4 MG/DL (8.8-10.2); CARBON DIOXIDE LEVEL 29 MEQ/L (21-32); CHLORIDE LEVEL 106 MEQ/L (98-107); CREATININE FOR GFR 1.21 MG/DL (0.70-1.30); GLOMERULAR FILTRATION RATE > 60.0 (>42); GLUCOSE, FASTING 91 MG/DL (70-100); POTASSIUM SERUM 5.1 MEQ/L (3.5-5.1); SODIUM LEVEL 139 MEQ/L (136-145); TOTAL PROTEIN 7.3 GM/DL (6.4-8.2)
[2018-12-26 09:27] LABS: ERYTHROCYTE SEDIMENTATION RATE 35 mm/hr (0-20)
--- NOTE | 2018-12-26 10:10 | REP ---
PA and lateral chest: Comparison is 12/23/2017. The lung munoz are clear. The cardiac size is normal. The sumit, mediastinum, and skeletal structures are unremarkable. Impression: Negative PA and lateral chest. There is no interval change. Electronically Signed by Eze Scruggs MD 12/26/2018 10:01 A
--- NOTE | 2018-12-28 08:10 | ECGEPIP ---
[facility] Test Date: 2018-12-26 Pat Name: DORA BENITEZ Department: Room: - Gender: Male Branch Specialist: JENNA : 1940 Requested By: Danita Ibanez Order Number: [id number] Reading MD: Luh Fulton Measurements Intervals [place] Rate: 56 P: 36 OK: 211 QRS: 12 QRSD: 83 T: 42 QT: 420 QTc: 408 Interpretive Statements SINUS BRADYCARDIA WITH FIRST DEGREE AV BLOCK NO PRIOR Electronically Signed on 12-28-2018 8:10:41 EDT by Luh Fulton
== END ==
LOC: M LAB 08:02
PROVIDERS: ATTEND Orthopaedic Surgery
DX: M17.11 Unilateral primary osteoarthritis, right knee (principal); Z79.01 Long term (current) use of anticoagulants

== ENCOUNTER → 2019-01-03 | Outpatient (CLI) | payer MEDICARE, OTHER ==
[~2019-01-03] MED LIST changes: +PERC5TAB12 PO; +XARE10TA PO
== END ==
LOC: M PT 07:46
PROVIDERS: ATTEND Physician Assistant
DX: Z51.89 Encounter for other specified aftercare (principal)

== ENCOUNTER 2019-01-11 06:56 | Inpatient (IN) | payer MEDICARE, OTHER ==
--- NOTE | 2019-01-05 17:02 | HPE ---
DATE OF SCHEDULED ADMISSION: 01/11/2019 CHIEF COMPLAINT: Left knee pain. HISTORY OF PRESENT ILLNESS: Liban is a pleasant 78-year-old male with progressively worsening left knee pain and stiffness. He has failed to improve with conservative treatment. He has elected for surgery for his continued symptoms. X-rays of the left knee show advanced osteoarthritis. He has elected for surgery for his continued symptoms. He has consented for a left total knee arthroplasty by Dr. Danita Kelly. Medical optimization was performed by Camila Denton. ALLERGIES: No known allergies. CURRENT MEDICATIONS: Atorvastatin calcium 40 mg once a day, metoprolol 25 mg twice a day, naproxen 220 mg once daily as needed and spironolactone 25 mg once daily. Also, Centrum Silver. PAST MEDICAL HISTORY: Includes hypertension, hyperlipidemia. PAST SURGICAL HISTORY: Includes three hernia repairs, a left total hip replacement, abdominal aortic aneurysm, and kidney stone removal. 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 Does not smoke, does not drink alcohol. FAMILY HISTORY: Noncontributory. REVIEW OF SYSTEMS: This patient denies chest pain, heart palpitations, cough, wheezing, difficulty breathing and shortness of breath. He denies nausea, vomiting, diarrhea or constipation. He denies recent upper respiratory infection or urinary tract infection symptoms. He does complain of persistent pain in his left knee. PHYSICAL EXAMINATION: General: He is well-nourished, well-developed, in no acute distress, alert male patient. He ambulates with a moderate limp, favoring the left lower extremity. He is not using assistive devices. Vital signs: He is 5 feet 7 inches, weighs 242 pounds with a temperature of 98, blood pressure 140/70, pulse of 68, and respirations of 16. Neck was supple without adenopathy or jugular venous distension. Lungs were clear to auscultation without rales or wheeze throughout. Heart: Regular rate and rhythm. Abdomen: Bowel sounds were present. Extremities: Examination of the knee revealed intact skin. He had decreased range of motion secondary to pain and stiffness. The limb was neurovascularly intact. LABORATORY DATA: EKG showed sinus bradycardia with first-degree atrioventricular (AV) block with a rate of 56 beats per minute. Chest x-ray showed no acute cardiopulmonary disease processes. Pro-time 13.8, INR 1.08, glucose 91, BUN 31, creatinine 1.21. Sodium 131, potassium 5.1. CBC showed hemoglobin of 12.5 and hematocrit of 39, otherwise within normal limits with a sedimentation rate of 35. IMPRESSION: Symptomatic osteoarthritis of the left knee. PLAN: Consented for a left total knee arthroplasty by Dr. Danita Kelly.
[2019-01-11] VITALS (9 sets, daily range): BP systolic 156–192; BP diastolic 82–96
[~2019-01-11] VITALS: Ht 170.2 cm; Wt 109.1 kg
[~2019-01-11 06:56] MED LIST changes: +ACETAMINOPHEN 500 MG TAB PO ONE; +LR 1,000 ML IV ONE; -PERC5TAB12 PO; +VANCOMYCIN HCL 1,000 MG, VIAL MATE ADAPTER 1 EACH in D5W 250 ML IV ONE; -XARE10TA PO
[2019-01-11] MEDS ORDERED: ceFAZolin 1GM INJ (J0690 PER 500MG) As Ordered ONE (07:06)
[2019-01-11] MEDS ORDERED: PROPOFOL 500 MG/50 ML VIAL As Ordered ONE (08:24)
[2019-01-11] MEDS ORDERED: MIDAZOLAM INJ 2 MG/2 ML VIAL (J2250) As Ordered ONE (09:07)
[2019-01-11] MEDS ORDERED: fentaNYL 100 MCG/2 ML INJECTION (J3010) As Ordered ONE (09:07)
[2019-01-11] MEDS ORDERED: BUPIVACAINE HCL 0.25% 10 ML VIAL As Ordered ONE (09:32)
[2019-01-11] MEDS ORDERED: TRANEXAMIC ACID 100 MG/ML 10ML VIAL As Ordered ONE (09:32)
[2019-01-11] MEDS ORDERED: CLINDAMYCIN INJ 900MG/6ML VIAL As Ordered ONE (09:33)
[2019-01-11] MEDS ORDERED: EPINEPHrine INJ 1 MG/ML 1ML AMP As Ordered ONE (09:33)
[2019-01-11] MEDS ORDERED: BUPIVACAINE LIPOSOME/PF 1.3% 20ML VIAL (13.3MG/ML)(EXPAREL)(C9290 PER1MG) As Ordered ONE (09:33)
[2019-01-11] MEDS ORDERED: fentaNYL 100 MCG/2 ML INJECTION (J3010) IV ONE (10:00)
[2019-01-11] MEDS ORDERED: MIDAZOLAM INJ 2 MG/2 ML VIAL (J2250) IV ONE (10:00)
[2019-01-11] MEDS ORDERED: ROPIvacaine 0.5% 30 ML INJECTION (J2795 PER 1MG) ONE (11:40)
[2019-01-11] MEDS ORDERED: LIDOCAINE 1% MDV 20ML VIAL ONE (11:40)
[2019-01-11] MEDS ORDERED: dexameTHASONE 10 MG/1 ML VIAL PRES.FREE (J1100) ONE (11:40)
[2019-01-11] MEDS ORDERED: PROPOFOL 200 MG/20 ML VIAL As Ordered ONE ×2 (11:55→12:19)
[2019-01-11] MEDS ORDERED: PERCOCET 5MG/325MG TAB As Ordered ONE (13:28)
[2019-01-11] MEDS: fentaNYL 100 MCG/2 ML INJECTION (J3010) IV PRN ×3 (13:28→13:42)
[2019-01-11] MEDS ORDERED: hydrALAZINE INJ 20 MG/ML VIAL As Ordered ONE (13:40)
[2019-01-11] MEDS ORDERED: VANCOMYCIN HCL 1,000 MG, VIAL MATE ADAPTER 1 EACH in D5W 250 ML IV ONE ×2 (13:45→21:00)
[2019-01-11] MEDS ORDERED: hydrALAZINE INJ 20 MG/ML VIAL IV SCH (14:00)
[2019-01-11] MEDS ORDERED: ONDANSETRON 4MG/2ML VIAL (J2405) IV PRN ×2 (14:00→15:00)
[2019-01-11] MEDS ORDERED: LR 1,000 ML IV SCH ×2 (14:00→15:00)
[2019-01-11] MEDS ORDERED: PERCOCET 5MG/325MG TAB PO PRN (14:00)
[2019-01-11] MEDS ORDERED: HYDROMORPHONE HCL 0.5 MG/ 0.5 ML SYRINGE (J1170 PER 1) IV PRN (14:00)
--- NOTE | 2019-01-11 14:18 | REP ---
REASON: Postoperative. Patient is status post TKR. The femoral and tibial components of the knee prosthesis are well seated and well approximated. The alignment is near anatomical. There is expected postoperative soft tissue swelling. There is an anterior midline skin staple line in place. IMPRESSION: Status post TKR as described above. Electronically Signed by Usman Curtis DO 01/11/2019 04:30 P
[2019-01-11] MEDS ORDERED: ACETAMINOPHEN TAB 650MG DOSE (2X325MG) PO PRN (15:00)
[2019-01-11] MEDS ORDERED: MORPHINE 4 MG/ML 1ML VIAL/SYRINGE (J2270) IV PRN ×2 (15:00)
[2019-01-11] MEDS ORDERED: FLEET ENEMA PR PRN (15:00)
--- NOTE | 2019-01-11 16:05 | HPEPDOC ---
General Date of Admission Jan 11, 2019 at 06:56 Date of Service: Jan 11, 2019 Chief Complaint The patient is a 78-year-old male admitted with a reason for visit of Arthritis Right Knee. Source: Patient, Family, Old records History of Present Illness Consultation report Consultation requested by Orthopedic service Consultation for : management of medical commorbidiites. HPI: 78 year old male with PMH of Hypertension, hyperlipidemia, h/o prostate cancer s/p radiation in 2018, stool incontinence, H/o AAA rupture followed by repair in 2013, hernia repairs x 3 , left hip arthroplasty admitted for elective left total knee replacement for advanced osteoarthritis. Hospitalist has been consulted for management of medical commorbidities. He complains of appropriate pain at the left knee about 5/10 throbbing in nature says the anesthesia is wearing off and the pain is coming. No radiation. Home Medications Scheduled Atorvastatin Calcium (Atorvastatin Calcium) 40 Mg Tablet, 40 MG PO DAILY, (Reported) Metoprolol Tartrate (Metoprolol Tartrate) 25 Mg Tab, 25 MG PO BID, (Reported) Rivaroxaban (Xarelto) 10 Mg Tablet, 10 MG PO DAILY Spironolactone (Spironolactone) 25 Mg Tablet, 25 MG PO DAILY, (Reported) Scheduled PRN Oxycodone HCl/Acetaminophen (Percocet 5-325 mg Tablet) 1 Each Tablet, 1 TAB PO Q4H PRN for PAIN Allergies Coded Allergies: No Known Allergies (Unverified , 12/28/18) Past Medical History Medical History Hypertension, hyperlipidemia, h/o prostate cancer s/p radiation in 2018, stool incontinence, H/o AAA rupture followed by repair in 2013, hernia repairs x 3 ( left inguinal x2 and umbilical hernia) , left hip arthroplasty, GERD, carotid artery stenosis Family History Significant Family History: Cancer (mother breast cancer), Heart disease ( father) Social History * Smoker: Denies Alcohol: Denies Drugs: denies A-FIB/CHADSVASC A-FIB History Current/History of A-Fib/PAF?: No Review of Systems Constitutional: Denies: Chills, Fever, Night Sweats Eyes: Denies: Pain, Vision change ENT: Denies: Head Aches, Ear Pain, Dysphagia Skin: Denies: Rash, Lesions, Breakdown Pulmonary: Denies: Dyspnea, Cough Cardiovascular: Reports: Edema; Denies: Chest Pain, Palpitations, Orthopnea, Paroxysmal Noc. Dyspnea, Lt Headedness Gastrointestinal: Denies: Nausea, Vomiting, Abdominal Pain, Diarrhea Genitourinary: Denies: Dysuria, Frequency, Incontinence, Retention Hematologic: Denies: Bruising, Bleeding Excessively Musculoskeletal: Reports: Joint Pain Neurological: Denies: Weakness, Numbness, Change in speech, Confusion Physical Examination General Exam: Positive: Alert, Cooperative, No Acute Distress Eye Exam: Positive: PERRLA, Conjunctiva & lids normal, EOMI; Negative: Sclera icteric ENT Exam: Positive: Atraumatic, Mucous membr. moist/pink, Pharynx Normal Neck Exam: Positive: Supple; Negative: JVD, thyromegaly Chest Exam: Positive: Clear to auscultation, Normal air movement Heart Exam: Positive: Rate Normal, Regular Rhythm, Normal S1, Normal S2; Negative: Murmurs, Rubs Abdomen Exam: Positive: Normal bowel sounds, Soft; Negative: Tenderness, Hepatospenomegaly Extremity Exam: Positive: Edema (right leg trace edema), Normal pulses; Negative: Clubbing, Cyanosis Skin Exam: Positive: Nl turgor and temperature; Negative: Breakdown, Lesion Psych Exam: Positive: Mental status NL, Mood NL, Oriented x 3 Vital Signs Vital Signs Date Time Temp Pulse Resp B/P (MAP) Pulse Ox O2 Delivery O2 Flow Rate FiO2 01/11/19 14:10 72 18 98 Nasal Cannula 2 01/11/19 14:00 159/80 (106) 01/11/19 13:55 97.6 Assessment/Plan 78 year old male with PMH of Hypertension, hyperlipidemia, h/o prostate cancer s/p radiation in 2018, stool incontinence, H/o AAA rupture followed by repair in 2014, hernia repairs x 3 , left hip arthroplasty, GERD, carotid artery disease admitted for elective left total knee replacement for advanced osteoarthritis. Hospitalist has been consulted for management of medical commorbidities. Left total knee replacement for advanced OA pain control and dvt prophylaxis as per orthopedics PT Hypertension continue home meds Hyperlipidemia continue statin. Plan / VTE VTE Prophylaxis Ordered?: Yes ARABELLA KING MD Jan 11, 2019 16:05
--- NOTE | 2019-01-11 17:22 | RO ---
DATE OF PROCEDURE: 01/11/2019 PREPROCEDURE DIAGNOSIS: Left knee degenerative arthritis. POSTPROCEDURE DIAGNOSIS: Left knee degenerative arthritis. OPERATIVE PROCEDURE: Left total knee arthroplasty using a size 5 cruciate sacrificing femoral component. It was an Attune knee cemented with a size 6 tibial tray and a 6 mm rotating platform polyethylene insert and a 38 mm polyethylene button. All components were made by [employer]. SURGEON: Danita Kelly MD [employer]: Mr. Jarrell Davis ANESTHESIA: Spinal with left femoral nerve block. COMPLICATIONS: None. ESTIMATED BLOOD LOSS: 20 mL SPECIMENS: Joint surface. DESCRIPTION OF PROCEDURE: Antibiotics were given intravenously preoperatively then a successful left femoral nerve block and then a spinal anesthetic was induced. A tourniquet was applied to the left upper thigh and not inflated. The left lower extremity was carefully prepped and draped in the usual sterile fashion and elevated and after an appropriate time out, the tourniquet was inflated. A longitudinal incision was then made for a medial parapatellar approach to the left knee. Bovie cautery was used to coagulate crossing vessels. Subperiosteal dissection around the proximal medial and lateral tibial plateau was performed. It is noteworthy preoperatively that before the incision he had a significant extension contracture. He only could flex about maximum 70 degrees. He had full extension, but he could only flex about 70 degrees. We were able to eventually austin the patella and flex the knee. ACL was debrided. Drill placed down the center of the femoral canal followed by the intramedullary jose guadalupe. The distal femoral cutting jig set at 9 mm resection level at 5 degrees valgus cut for a left knee. It was pinned in position. Distal femoral cut performed. AP sizing jig measured for a size 6 femoral component. 3 degrees of external rotation dialed in, pins placed, four-in-one block applied and the anterior-posterior chamfer cuts performed. We then exposed the proximal tibia, used the extramedullary alignment jig to estimate being parallel to the mechanical axis, referencing off the lateral tibial condyle 4 mm. We checked and the medial side it was 10, so it looked about right. The block was pinned into position and then the secondary check of the extramedullary jose guadalupe confirmed we appeared to be parallel to the mechanical axis, thus a proximal tibial osteotomy was performed. Laminar product safety professional was then placed medially and we performed a completion lateral meniscectomy with debridement of posterior and lateral osteophytes, then placed the laminar product safety professional laterally and performed a completion medial meniscectomy with debridement of posterior and medial osteophytes. It is noteworthy that he is actually quite tight in flexion. We could not get the 5 mm block in flexion, but it could come out fairly snugly in extension. Actually we could not get the 6 mm in flexion, but the 7 mm fit nicely in extension as did the 6. Thus, I felt he was asymmetrically tight in flexion. We elected at this point because of the lack of motion starting out that we should go to a PCL sacrificing knee. Thus, at this point I debrided the PCL and then we retested the flexion and extension gaps. He was still asymmetrically tight in flexion versus extension, thus elected to downsize the femur. Using the batwing and the four-in-one block we reapplied the four-in-one block to the femur, pinned it in position and then using the #5 four-in-one block and then on the posterior end posterior chamfer cuts were performed. We then tested once again and now he could easily fit the 6 mm spacer block in flexion and in extension. It was nice and stable with varus to valgus stress testing. I then placed the jig for the box cut and pinned it to the femur and then performed the box osteotomy. We then exposed the proximal tibia, sized for a #6 tray, was pinned into position, followed by the reamer and broach. Then the trial femoral component applied, followed by the 6 mm rotating platform, posterior stabilized polyethylene trial. Then brought the knee into extension, everted the patella, performed a patellar osteotomy, sized for a 38 button. Lug holes drilled. Trials placed. Patellofemoral tracking was anatomic. However, we still had fairly significant tightness with limitation in flexion, but with the patella everted, the knee easily flexed beyond 90 degrees, but with the patella in position, it was quite snug, indicative that he had significant quadriceps contracture. I released as much as I could intra-articularly of the quadriceps, but that did help improve his flexion to some degree. We then at this point drilled the lug holes for the femur, removed all the trial components, placed Exparel in the subperiosteal tissues around the distal femur and the proximal tibia. Then my assistant professor of nursing, Mr. Jarrell Davis mixed the cement on the back table as I prepared the bony surfaces for cementing with a copious amount of pulsatile lavage irrigant solution. Mr. Jarrell Davis was critical to the success of this difficult procedure by helping with appropriate manipulation of the knee, helped with appropriate soft tissue retraction, helped to mix the cement, helped to close the wound, helped to prepare the patient amongst many other tasks allowing me to perform the operation smoothly, efficiently and safely. Once all the bony surfaces were thoroughly dried, we cemented the tibial tray, removed excess cement, then cemented the femoral component, removed excess cement, placed the polyethylene, reduced the knee, brought it into extension, everted the patella and cemented the patellar button, removed excess cement and held it with a clamp with the knee in extension until the cement hardened. And as we were awaiting this, we copiously irrigated out the knee joint once again with irrigant solution and then placed Tranexamic acid into the knee and then closed the apex of the arthrotomy with two #1 PDS sutures. Medial peripatellar area was closed with a #1 PDS suture, then the capsule was closed with a running #1 double arm Stratafix. We then released the tourniquet, irrigated between layers, closed the deep subdermal tissues with interrupted #2-0 PDS sutures, skin was closed with navi, covered by an Optifoam dry sterile bulky dressing. He was then transferred to the recovery room in stable condition. There were no intraoperative complications.
[2019-01-11] MEDS ORDERED: amLODIPine 5 MG TAB PO ONE (18:00)
[2019-01-11] MEDS ORDERED: METOPROLOL TART 25 MG TABLET As Ordered ONE (18:26)
[2019-01-11] MEDS: METOPROLOL TART 25 MG TABLET PO SCH (18:28)
[2019-01-11] MEDS: PERCOCET 5MG/325MG TAB PO PRN (21:38)
[2019-01-12 02:00] VITALS: BP 147/89
[2019-01-12] MEDS: PERCOCET 5MG/325MG TAB PO PRN ×5 (02:15→22:19)
[2019-01-12 06:14] LABS: BLOOD UREA NITROGEN 27 MG/DL (7-18); CALCIUM LEVEL 9.2 MG/DL (8.8-10.2); CARBON DIOXIDE LEVEL 24 MEQ/L (21-32); CHLORIDE LEVEL 103 MEQ/L (98-107); GLOMERULAR FILTRATION RATE > 60.0 (>42); GLUCOSE, FASTING 127 MG/DL (70-100); POTASSIUM SERUM 4.4 MEQ/L (3.5-5.1); SODIUM LEVEL 135 MEQ/L (136-145)
[2019-01-12] MEDS ORDERED: XARE10TA PO (06:21)
[2019-01-12] MEDS ORDERED: PERC5TAB12 PO (06:21)
[2019-01-12] MEDS: MIRALAX *UNIT DOSE* 17GM PACKET PO SCH (08:17)
[2019-01-12] MEDS: MOM 30ML SUSPENSION UDC PO SCH (08:17)
[2019-01-12] MEDS: METOPROLOL TART 25 MG TABLET PO SCH ×2 (08:18→21:47)
[2019-01-12] MEDS: SPIRONOLACTONE 25 MG TAB PO SCH (08:18)
[2019-01-12 08:32] LABS: BASO % 0.1 % (0.0-1.0); HEMATOCRIT 35.6 % (42.0-52.0); HEMOGLOBIN 11.6 g/dl (13.5-17.5); LYMPH # 0.7 10^3/uL (1.5-5.0); LYMPH % 5.7 % (24.0-44.0); MEAN CORPUSCULAR HEMOGLOBIN 26.9 pg (27.0-33.0); MEAN CORPUSCULAR HGB CONC 32.6 g/dl (32.0-36.5); MEAN CORPUSCULAR VOLUME 82.4 fl (80.0-96.0); MONO % 8.8 % (0.0-5.0); NEUTROPHILS # 9.9 10^3/uL (1.5-8.5); NEUTROPHILS % 84.5 % (36.0-66.0); PLATELET COUNT, AUTOMATED 259 10^3/uL (150-450); RED BLOOD COUNT 4.32 10^6/uL (4.30-6.10); WHITE BLOOD COUNT 11.7 10^3/uL (4.0-10.0)
[2019-01-12 09:43] VITALS: BP 145/89
--- NOTE | 2019-01-12 11:27 | IPNPDOC ---
Subjective Date Seen The patient was seen on 01/12/19. Subjective Chief Complaint/HPI complains of pain in the left knee says the block is wearing off. Working with PT. Objective Physical Examination General Exam: Positive: Alert, Cooperative, No Acute Distress Eye Exam: Positive: PERRLA, Conjunctiva & lids normal, EOMI; Negative: Sclera icteric ENT Exam: Positive: Atraumatic, Mucous membr. moist/pink, Pharynx Normal Neck Exam: Positive: Supple; Negative: JVD, thyromegaly Chest Exam: Positive: Clear to auscultation, Normal air movement Heart Exam: Positive: Rate Normal, Regular Rhythm, Normal S1, Normal S2; Negative: Murmurs, Rubs Abdomen Exam: Positive: Normal bowel sounds, Soft; Negative: Tenderness, Hepatospenomegaly Extremity Exam: Positive: Edema (right leg trace edema), Normal pulses; Negative: Clubbing, Cyanosis Skin Exam: Positive: Nl turgor and temperature; Negative: Breakdown, Lesion Psych Exam: Positive: Mental status NL, Mood NL, Oriented x 3 Assessment /Plan Assessment 78 year old male with PMH of Hypertension, hyperlipidemia, h/o prostate cancer s/p radiation in 2018, stool incontinence, H/o AAA rupture followed by repair in 2014, hernia repairs x 3 , left hip arthroplasty, GERD, carotid artery disease admitted for elective left total knee replacement for advanced osteoarthritis. Hospitalist has been consulted for management of medical commorbidities. Left total knee replacement for advanced OA pain control and dvt prophylaxis as per orthopedics PT and OT Hypertension continue home meds metoprolol and spironolactone. Hyperlipidemia continue statin. Plan/VTE VTE Prophylaxis Ordered?: Yes VS, I&O, 24H, Fishbone Vital Signs/I&O Vital Signs Date Time Temp Pulse Resp B/P (MAP) Pulse Ox O2 Delivery O2 Flow Rate FiO2 01/12/19 08:18 79 147/89 01/12/19 08:15 18 Room Air 01/12/19 02:45 95 01/12/19 02:00 97.3 01/11/19 22:08 1.0 I&O- Last 24 Hours up to 6 AM 01/12/19 06:00 Intake Total 2060 ml Output Total 600 ml Balance 1460 ml Laboratory Data 24H LABS Laboratory Tests 2 01/12/19 05:33: Immature Granulocyte % (Auto) 0.9, Neutrophils (%) (Auto) 84.5H, Lymphocytes (%) (Auto) 5.7L, Monocytes (%) (Auto) 8.8H, Eosinophils (%) (Auto) 0.0, Basophils (%) (Auto) 0.1, Neutrophils # (Auto) 9.9H, Lymphocytes # (Auto) 0.7L, Monocytes # (Auto) 1.0H, Eosinophils # (Auto) 0.0, Basophils # (Auto) 0.0, Nucleated Red Blood Cells % (auto) 0.0, Anion Gap 8, Glomerular Filtration Rate > 60.0, Calcium Level 9.2 CBC/BMP Laboratory Tests 01/12/19 05:33 ARABELLA KING MD Jan 12, 2019 11:27
[2019-01-12 14:19] VITALS: BP 136/79
[2019-01-12] MEDS: RIVAROXABAN 10 MG TAB (XARELTO) PO SCH (16:59)
[2019-01-12] MEDS: ATORVASTATIN 20 MG TAB PO SCH (21:46)
[2019-01-12 22:00] VITALS: BP 150/80
[2019-01-13] MEDS: PERCOCET 5MG/325MG TAB PO PRN ×5 (02:59→23:33)
[2019-01-13 06:00] VITALS: BP 146/80
[2019-01-13 06:38] LABS: HEMATOCRIT 32.7 % (42.0-52.0); HEMOGLOBIN 10.7 g/dl (13.5-17.5); MEAN CORPUSCULAR HEMOGLOBIN 27.3 pg (27.0-33.0); MEAN CORPUSCULAR HGB CONC 32.7 g/dl (32.0-36.5); MEAN CORPUSCULAR VOLUME 83.4 fl (80.0-96.0); PLATELET COUNT, AUTOMATED 220 10^3/uL (150-450); RED BLOOD COUNT 3.92 10^6/uL (4.30-6.10); WHITE BLOOD COUNT 9.5 10^3/uL (4.0-10.0)
[2019-01-13 06:58] LABS: BLOOD UREA NITROGEN 36 MG/DL (7-18); CALCIUM LEVEL 9.1 MG/DL (8.8-10.2); CARBON DIOXIDE LEVEL 28 MEQ/L (21-32); CHLORIDE LEVEL 99 MEQ/L (98-107); CREATININE FOR GFR 1.19 MG/DL (0.70-1.30); GLOMERULAR FILTRATION RATE > 60.0 (>42); GLUCOSE, FASTING 112 MG/DL (70-100); POTASSIUM SERUM 4.3 MEQ/L (3.5-5.1); SODIUM LEVEL 132 MEQ/L (136-145)
[2019-01-13] MEDS: MOM 30ML SUSPENSION UDC PO SCH (08:55)
[2019-01-13] MEDS: SPIRONOLACTONE 25 MG TAB PO SCH (08:55)
[2019-01-13] MEDS: METOPROLOL TART 25 MG TABLET PO SCH ×2 (08:55→20:40)
[2019-01-13] MEDS: MIRALAX *UNIT DOSE* 17GM PACKET PO SCH (08:55)
[2019-01-13] MEDS ORDERED: FLUBLOK(EGG FREE)(QUAD)INFLUENZA VACC 0.5ML SYRINGE (90682)18YRS&OLDER IM ONE (09:00)
--- NOTE | 2019-01-13 12:25 | IPNPDOC ---
Subjective Date Seen The patient was seen on 01/13/19. Subjective Chief Complaint/HPI continues to be in severe pain. Says now the right knee is hurting more. The left knee which was operated pain is controlled but says he is putting more pressure ont eh right knee during walking that has worsened the pain. Was asking if he could get a steroid injec tion in that knee. I have told him to discuss this with the orthopedic surgeon. No nausea or vomting, no abdominal pain or diarrhea. As per chart no bowel movement documented. Objective Physical Examination General Exam: Positive: Alert, Cooperative, No Acute Distress Eye Exam: Positive: PERRLA, Conjunctiva & lids normal, EOMI; Negative: Sclera icteric ENT Exam: Positive: Atraumatic, Mucous membr. moist/pink, Pharynx Normal Neck Exam: Positive: Supple; Negative: JVD, thyromegaly Chest Exam: Positive: Clear to auscultation, Normal air movement Heart Exam: Positive: Rate Normal, Regular Rhythm, Normal S1, Normal S2; Negative: Murmurs, Rubs Abdomen Exam: Positive: Normal bowel sounds, Soft; Negative: Tenderness, Hepatospenomegaly Extremity Exam: Positive: Edema (right leg trace edema), Normal pulses; Negative: Clubbing, Cyanosis Skin Exam: Positive: Nl turgor and temperature; Negative: Breakdown, Lesion Psych Exam: Positive: Mental status NL, Mood NL, Oriented x 3 Assessment /Plan Assessment 78 year old male with PMH of Hypertension, hyperlipidemia, h/o prostate cancer s/p radiation in 2018, stool incontinence, H/o AAA rupture followed by repair in 2014, hernia repairs x 3 , left hip arthroplasty, GERD, carotid artery disease admitted for elective left total knee replacement for advanced osteoarthritis. Hospitalist has been consulted for management of medical commorbidities. Left total knee replacement for advanced OA pain control and dvt prophylaxis as per orthopedics PT and OT Right knee advanced OA this is bothering him a lot today. Hypertension continue home meds metoprolol and spironolactone. Hyperlipidemia continue statin. Plan/VTE VTE Prophylaxis Ordered?: Yes VS, I&O, 24H, Fishbone Vital Signs/I&O Vital Signs Date Time Temp Pulse Resp B/P (MAP) Pulse Ox O2 Delivery O2 Flow Rate FiO2 01/13/19 09:26 18 Room Air 01/13/19 08:55 70 146/80 01/13/19 06:00 97.9 96 01/11/19 22:08 1.0 I&O- Last 24 Hours up to 6 AM 01/13/19 06:00 Intake Total 1200 ml Output Total 875 ml Balance 325 ml Laboratory Data 24H LABS Laboratory Tests 2 01/13/19 05:23: Nucleated Red Blood Cells % (auto) 0.0, Anion Gap 5L, Glomerular Filtration Rate > 60.0, Calcium Level 9.1 CBC/BMP Laboratory Tests 01/13/19 05:23 ARABELLA KING MD Jan 13, 2019 12:25
[2019-01-13] MEDS: MORPHINE 15 MG SA TAB PO SCH ×2 (14:30→20:39)
[2019-01-13 15:58] VITALS: BP 155/80
[2019-01-13] MEDS: RIVAROXABAN 10 MG TAB (XARELTO) PO SCH (17:12)
[2019-01-13] MEDS: ATORVASTATIN 20 MG TAB PO SCH (20:39)
[2019-01-13 22:00] VITALS: BP 138/84
[2019-01-14 06:00] VITALS: BP 142/80
[2019-01-14] MEDS: PERCOCET 5MG/325MG TAB PO PRN ×3 (08:29→17:28)
[2019-01-14] MEDS: SPIRONOLACTONE 25 MG TAB PO SCH (08:29)
[2019-01-14] MEDS: METOPROLOL TART 25 MG TABLET PO SCH ×2 (08:29→20:03)
[2019-01-14] MEDS: MIRALAX *UNIT DOSE* 17GM PACKET PO SCH (08:30)
[2019-01-14] MEDS: MORPHINE 15 MG SA TAB PO SCH ×2 (08:30→20:01)
[2019-01-14] MEDS: MOM 30ML SUSPENSION UDC PO SCH (08:30)
[2019-01-14] MEDS ORDERED: MORPHINE 4 MG/ML 1ML VIAL/SYRINGE (J2270) IV ONE (12:00)
[2019-01-14 14:00] VITALS: BP 145/83
[2019-01-14] MEDS: RIVAROXABAN 10 MG TAB (XARELTO) PO SCH (17:28)
[2019-01-14] MEDS: ATORVASTATIN 20 MG TAB PO SCH (20:00)
[2019-01-14 22:00] VITALS: BP 145/60
[2019-01-15] MEDS: PERCOCET 5MG/325MG TAB PO PRN ×5 (02:17→20:19)
[2019-01-15] MEDS ORDERED: XARE10TA PO (05:58)
[2019-01-15 06:00] VITALS: BP 158/75
[2019-01-15] MEDS: MIRALAX *UNIT DOSE* 17GM PACKET PO SCH (07:48)
[2019-01-15] MEDS: SPIRONOLACTONE 25 MG TAB PO SCH (07:48)
[2019-01-15] MEDS: METOPROLOL TART 25 MG TABLET PO SCH ×2 (07:48→21:21)
[2019-01-15] MEDS: MOM 30ML SUSPENSION UDC PO SCH ×2 (07:48→13:06)
[2019-01-15] MEDS: MORPHINE 15 MG SA TAB PO SCH ×2 (07:50→21:21)
--- NOTE | 2019-01-15 11:29 | IPNPDOC ---
Subjective Date Seen The patient was seen on 01/15/19. Subjective Chief Complaint/HPI Complains of leg swelling. Says the knee pain is controlled with the current pain meds. He was able to stand up but need 2 assist. No fever or chills, no chest pain or sob, no abdominal pain , nausea or vomiting. Objective Physical Examination General Exam: Positive: Alert, Cooperative, No Acute Distress Eye Exam: Positive: PERRLA, Conjunctiva & lids normal, EOMI; Negative: Sclera icteric ENT Exam: Positive: Atraumatic, Mucous membr. moist/pink, Pharynx Normal Neck Exam: Positive: Supple; Negative: JVD, thyromegaly Chest Exam: Positive: Clear to auscultation, Normal air movement Heart Exam: Positive: Rate Normal, Regular Rhythm, Normal S1, Normal S2; Negative: Murmurs, Rubs Abdomen Exam: Positive: Normal bowel sounds, Soft; Negative: Tenderness, Hepatospenomegaly Extremity Exam: Positive: Edema (right leg trace edema), Normal pulses; Negative: Clubbing, Cyanosis Skin Exam: Positive: Nl turgor and temperature; Negative: Breakdown, Lesion Psych Exam: Positive: Mental status NL, Mood NL, Oriented x 3 Assessment /Plan Assessment 78 year old male with PMH of Hypertension, hyperlipidemia, h/o prostate cancer s/p radiation in 2018, stool incontinence, H/o AAA rupture followed by repair in 2014, hernia repairs x 3 , left hip arthroplasty, GERD, carotid artery disease admitted for elective left total knee replacement for advanced osteoarthritis. Hospitalist has been consulted for management of medical comorbidities. Left total knee replacement for advanced OA pain control and dvt prophylaxis as per orthopedics PT and OT Right knee advanced OA has pain controlled with current meds. has increased swelling in the leg will give some lasix Hypertension continue home meds metoprolol and spironolactone. Bilateral leg swelling will give lasix. Hyperlipidemia continue statin. Plan/VTE VTE Prophylaxis Ordered?: Yes VS, I&O, 24H, Fishbone Vital Signs/I&O Vital Signs Date Time Temp Pulse Resp B/P (MAP) Pulse Ox O2 Delivery O2 Flow Rate FiO2 01/15/19 11:10 18 Room Air 01/15/19 07:48 74 158/75 01/15/19 06:00 97.8 97 01/11/19 22:08 1.0 I&O- Last 24 Hours up to 6 AM 01/15/19 06:00 Intake Total 1870 ml Output Total 1025 ml Balance 845 ml ARABELLA KING MD Jan 15, 2019 11:29
[2019-01-15] MEDS ORDERED: FUROSEMIDE 40 MG TAB PO ONE (12:00)
[2019-01-15 14:00] VITALS: BP 150/78
[2019-01-15] MEDS: RIVAROXABAN 10 MG TAB (XARELTO) PO SCH (17:12)
[2019-01-15 20:21] VITALS: BP 144/80
[2019-01-15] MEDS: ATORVASTATIN 20 MG TAB PO SCH (21:20)
[2019-01-16] MEDS: PERCOCET 5MG/325MG TAB PO PRN ×5 (03:28→20:40)
[2019-01-16 05:09] VITALS: BP 150/81
[2019-01-16] MEDS: MIRALAX *UNIT DOSE* 17GM PACKET PO SCH ×2 (07:22→12:11)
[2019-01-16] MEDS: FUROSEMIDE 40 MG TAB PO SCH (07:22)
[2019-01-16] MEDS: SPIRONOLACTONE 25 MG TAB PO SCH (07:22)
[2019-01-16] MEDS: METOPROLOL TART 25 MG TABLET PO SCH ×2 (07:22→20:41)
--- NOTE | 2019-01-16 11:31 | IPNPDOC ---
Subjective Date Seen The patient was seen on 01/16/19. Subjective Chief Complaint/HPI Sitting up in chair asleep. Does not complain of any increased pain at this time. not doing well with PT. Still had bilateral leg swelling. Objective Physical Examination General Exam: Positive: Alert, Cooperative, No Acute Distress Eye Exam: Positive: PERRLA, Conjunctiva & lids normal, EOMI; Negative: Sclera icteric ENT Exam: Positive: Atraumatic, Mucous membr. moist/pink, Pharynx Normal Neck Exam: Positive: Supple; Negative: JVD, thyromegaly Chest Exam: Positive: Clear to auscultation, Normal air movement Heart Exam: Positive: Rate Normal, Regular Rhythm, Normal S1, Normal S2; Negative: Murmurs, Rubs Abdomen Exam: Positive: Normal bowel sounds, Soft; Negative: Tenderness, Hepatospenomegaly Extremity Exam: Positive: Edema (right leg trace edema), Normal pulses; Negative: Clubbing, Cyanosis Skin Exam: Positive: Nl turgor and temperature; Negative: Breakdown, Lesion Psych Exam: Positive: Mental status NL, Mood NL, Oriented x 3 Assessment /Plan Assessment 78 year old male with PMH of Hypertension, hyperlipidemia, h/o prostate cancer s/p radiation in 2018, stool incontinence, H/o AAA rupture followed by repair in 2014, hernia repairs x 3 , left hip arthroplasty, GERD, carotid artery disease admitted for elective left total knee replacement for advanced osteoarthritis. Hospitalist has been consulted for management of medical comorbidities. Left total knee replacement for advanced OA pain control and dvt prophylaxis as per orthopedics PT and OT Right knee advanced OA has pain controlled with current meds. has increased swelling in the leg will give some lasix Hypertension continue home meds metoprolol and spironolactone. Bilateral leg swelling will give lasix. Hyperlipidemia continue statin. Plan/VTE VTE Prophylaxis Ordered?: Yes VS, I&O, 24H, Fishbone Vital Signs/I&O Vital Signs Date Time Temp Pulse Resp B/P (MAP) Pulse Ox O2 Delivery O2 Flow Rate FiO2 01/16/19 07:52 18 Room Air 01/16/19 07:22 74 150/81 01/16/19 05:09 98.3 98 01/11/19 22:08 1.0 I&O- Last 24 Hours up to 6 AM 10/28/19 06:00 Intake Total 1170 ml Output Total 1270 ml Balance -100 ml ARABELLA KING MD Jan 16, 2019 11:31
[2019-01-16] MEDS: MOM 30ML SUSPENSION UDC PO SCH (12:11)
[2019-01-16 14:00] VITALS: BP 165/80
[2019-01-16] MEDS: RIVAROXABAN 10 MG TAB (XARELTO) PO SCH (16:09)
[2019-01-16] MEDS: ATORVASTATIN 20 MG TAB PO SCH (20:39)
[2019-01-16 22:00] VITALS: BP 159/82
[2019-01-17] MEDS: PERCOCET 5MG/325MG TAB PO PRN ×3 (03:15→13:33)
[2019-01-17 06:00] VITALS: BP 145/76
[2019-01-17] MEDS: MIRALAX *UNIT DOSE* 17GM PACKET PO SCH (08:23)
[2019-01-17 08:24] VITALS: BP 145/76
[2019-01-17] MEDS: SPIRONOLACTONE 25 MG TAB PO SCH (08:24)
[2019-01-17] MEDS: MOM 30ML SUSPENSION UDC PO SCH (08:24)
[2019-01-17] MEDS: METOPROLOL TART 25 MG TABLET PO SCH (08:24)
[2019-01-17] MEDS: FUROSEMIDE 40 MG TAB PO SCH (08:24)
[2019-01-17] MEDS ORDERED: MAGNESIUM CITRATE 300 ML BTL PO ONE (09:00)
--- NOTE | 2019-01-17 11:46 | DS.PDOC ---
Discharge Summary General Date of Admission Jan 11, 2019 at 06:56 Date of Discharge 01/17/19 Discharge Summary PROCEDURES PERFORMED DURING STAY: None. ADMITTING DIAGNOSES: 1. Left total knee replacement. DISCHARGE DIAGNOSES: 1. After total knee replacement, hypertension, hyperlipidemia. COMPLICATIONS/CHIEF COMPLAINT: Arthritis Left Knee. HISTORY OF PRESENT ILLNESS: Liban is a pleasant 78-year-old male with progressively worsening left knee pain and stiffness. He has failed to improve with conservative treatment. He has elected for surgery for his continued symptoms. X-rays of the left knee show advanced osteoarthritis. He has elected for surgery for his continued symptoms. He has consented for a left total knee arthroplasty by Dr. Danita Kelly. HOSPITAL COURSE: 78 year old male with PMH of Hypertension, hyperlipidemia, h/o prostate cancer s/p radiation in 2018, stool incontinence, H/o AAA rupture followed by repair in 2013, hernia repairs x 3 , left hip arthroplasty, GERD, carotid artery disease admitted for elective left total knee replacement for advanced osteoarthritis. Hospitalist has been consulted for management of me dical comorbidities. , Status post Left total knee replacement for advanced osteoarthritis Patient received pain management initially with good control. Also received some Lasix for increased swelling of the leg DVT prophylaxis was started by orthopedics and will continue all his patient, as per orthopedics discharge instructions Hypertension continue home meds metoprolol and spironolactone. Hyperlipidemia continue statin. DISCHARGE MEDICATIONS: Please see below. ALLERGIES: Please see below. PHYSICAL EXAMINATION ON DISCHARGE: VITAL SIGNS: Please see below. GENERAL: Within normal limits HEENT: PERRLA. Extraocular muscles intact NECK: Supple CARDIOVASCULAR EXAMINATION: S1, S2, regular RESPIRATORY EXAMINATION: Clear to A&P ABDOMINAL EXAMINATION: Benign EXTREMITIES: No clubbing, cyanosis, edema SKIN: Normal NEUROLOGICAL EXAMINATION: Within normal limit PSYCHIATRIC EXAMINATION: The normal limit LABORATORY DATA: Please see below. IMAGING: Postoperative x-ray of right kneePatient is status post TKR. The femoral and tibial components of the knee prosthesis are well seated and well approximated. The alignment is near anatomical. There is expected postoperative soft tissue swelling. There is an anterior midline skin staple line in place. PROGNOSIS: Good ACTIVITY: As tolerated. DIET: [As tolerated DISCHARGE PLAN: DC home with physical therapy DISPOSITION: . Home with a physical therapy DISCHARGE INSTRUCTIONS: 1. As per discharge instructions . ITEMS TO FOLLOWUP ON ON OUTPATIENT: 1. Follow with orthopedic as per their instructions. DISCHARGE CONDITION: Stable. TIME SPENT ON DISCHARGE: 35 minutes. Vital Signs/I&Os Vital Signs Date Time Temp Pulse Resp B/P (MAP) Pulse Ox O2 Delivery O2 Flow Rate FiO2 01/17/19 08:26 18 Room Air 01/17/19 08:24 66 145/76 01/17/19 06:00 97.3 97 01/11/19 22:08 1.0 I&O- Last 24 Hours up to 6 AM 01/17/19 06:00 Intake Total 700 ml Output Total 550 ml Balance 150 ml Discharge Medications Scheduled Atorvastatin Calcium (Atorvastatin Calcium) 40 Mg Tablet, 40 MG PO DAILY, (Reported) Metoprolol Tartrate (Metoprolol Tartrate) 25 Mg Tab, 25 MG PO BID, (Reported) Rivaroxaban (Xarelto) 10 Mg Tablet, 10 MG PO DAILY Spironolactone (Spironolactone) 25 Mg Tablet, 25 MG PO DAILY, (Reported) Scheduled PRN Oxycodone HCl/Acetaminophen (Percocet 5-325 mg Tablet) 1 Each Tablet, 1 TAB PO Q4H PRN for PAIN Allergies Coded Allergies: No Known Allergies (Unverified , 12/28/18) CORTEZ COON MD Jan 17, 2019 11:46
== END 2019-01-17 14:15 | disposition home health service (06) | DRG 470 ==
LOC: M OR 06:56 → M MS5PR 14:20
PROVIDERS: ADMIT Orthopaedic Surgery; ATTEND Orthopaedic Surgery
PROC: 0SRD0J9 Replacement of Left Knee Joint with Synthetic Substitute, Cemented, Open Approach (ICD-10-PCS; principal; 2019-01-11 10:00)
DX: M17.0 Bilateral primary osteoarthritis of knee (principal); Z79.899 Other long term (current) drug therapy; I10 Essential (primary) hypertension; E78.5 Hyperlipidemia, unspecified; Z96.642 Presence of left artificial hip joint; K21.9 Gastro-esophageal reflux disease without esophagitis; Z85.46 Personal history of malignant neoplasm of prostate

== ENCOUNTER → 2019-02-28 | Outpatient (REF) | payer MEDICARE, OTHER ==
[~2019-02-28] MED LIST changes: -ACETAMINOPHEN 500 MG TAB PO ONE; -LR 1,000 ML IV ONE; +PERC5TAB12 PO; -VANCOMYCIN HCL 1,000 MG, VIAL MATE ADAPTER 1 EACH in D5W 250 ML IV ONE; +XARE10TA PO
== END ==
LOC: M SFHCCAPE 07:13
PROVIDERS: ATTEND Urology
DX: C61 Malignant neoplasm of prostate (principal)

== ENCOUNTER → 2019-04-22 | Outpatient (CLI) | payer MEDICARE, OTHER ==
--- NOTE | 2019-04-22 10:47 | REP ---
PA and lateral chest: Comparisons are 01/22/2017 and 12/26/2018. Lung munoz are clear. Cardiac size appears enlarged as an interval change. The sumit, mediastinum, skeletal structures are unremarkable. Impression: Cardiac size appears enlarged as an interval change. Otherwise, negative PA and lateral chest. Electronically Signed by Eze Scruggs MD 04/22/2019 10:40 A
== END ==
LOC: M WUC 10:20
PROVIDERS: ATTEND Physician Assistant
DX: R07.9 Chest pain, unspecified (principal)

== ENCOUNTER → 2019-08-28 | Outpatient (REF) | payer MEDICARE, OTHER | LOC: M SFHCCLAY 08:30 | PROVIDERS: ATTEND Urology | DX: C61 Malignant neoplasm of prostate (principal) ==

== ENCOUNTER → 2019-09-20 | Outpatient (REF) | payer MEDICARE, OTHER ==
[2019-09-20 12:25] LABS: HEMATOCRIT 42.8 % (42.0-52.0); HEMOGLOBIN 13.7 g/dl (13.5-17.5); MEAN CORPUSCULAR HEMOGLOBIN 26.9 pg (27.0-33.0); MEAN CORPUSCULAR VOLUME 84.1 fl (80.0-96.0); PLATELET COUNT, AUTOMATED 289 10^3/uL (150-450); RED BLOOD COUNT 5.09 10^6/uL (4.30-6.10); WHITE BLOOD COUNT 7.2 10^3/uL (4.0-10.0)
[2019-09-20 12:39] LABS: ALBUMIN 3.9 GM/DL (3.2-5.2); ALT/SGPT 25 U/L (12-78); BILIRUBIN,TOTAL 0.5 MG/DL (0.2-1.0); BLOOD UREA NITROGEN 25 MG/DL (7-18); C REACTIVE PROTEIN QUANTITATIV 1.08 MG/DL (0.00-0.30); CALCIUM LEVEL 9.5 MG/DL (8.8-10.2); CARBON DIOXIDE LEVEL 28 MEQ/L (21-32); CHLORIDE LEVEL 105 MEQ/L (98-107); CHOLESTEROL LEVEL 187 MG/DL (<200); CHOLESTEROL RISK RATIO 3.816 (<5); CPK CREATINE PHOSPHOKINASE 74 U/L (39-308); CREATININE FOR GFR 0.98 MG/DL (0.70-1.30); FREE T4 1.13 NG/DL (0.76-1.46); GLOMERULAR FILTRATION RATE > 60.0 (>42); GLUCOSE, FASTING 103 MG/DL (70-100); HDL CHOLESTEROL 49 MG/DL (>40); LDL CHOLESTEROL 109 MG/DL (<100); NON-HDL-C 138 MG/DL; POTASSIUM SERUM 4.6 MEQ/L (3.5-5.1); SODIUM LEVEL 138 MEQ/L (136-145); TOTAL PROTEIN 7.4 GM/DL (6.4-8.2); TRIGLYCERIDES LEVEL 145 MG/DL (<150)
[2019-09-20 12:41] LABS: VITAMIN B12 LEVEL 1321 PG/ML (247-911)
[2019-09-20 13:00] LABS: ERYTHROCYTE SEDIMENTATION RATE 41 mm/hr (0-20)
[2019-09-21 17:07] LABS: ANTINUCLEAR ANTIBODIES DIRECT Negative (Negative); Lyme Disease IgG/IgM Antibodie <0.91 ISR (0.00-0.90); Lyme Disease IgM Ab Quantitati <0.80 index (0.00-0.79)
== END ==
LOC: M SFHCCAPE 08:03
PROVIDERS: ATTEND Physician Assistant
DX: I10 Essential (primary) hypertension (principal)

== ENCOUNTER → 2019-10-02 | Outpatient (REF) | payer MEDICARE, OTHER | LOC: M SFHCCLAY 15:10 | PROVIDERS: ATTEND Physician Assistant | DX: R26.2 Difficulty in walking, not elsewhere classified (principal) ==

== ENCOUNTER → 2019-10-09 | Outpatient (REF) | payer MEDICARE, OTHER ==
[~2019-10-09] MED LIST changes: +ACET650T61 PO; +ATOR80TA59 PO; +CARB25TA9 PO; +NAPR220C14 PO; -TYLE650T35 PO
[2019-10-09 13:13] LABS: CPK CREATINE PHOSPHOKINASE 51 U/L (39-308)
[2019-10-09 13:20] LABS: VITAMIN B12 LEVEL 854 PG/ML
[2019-10-09 13:21] LABS: FOLATE > 24.0 NG/ML
[2019-12-05 15:09] LABS: VITAMIN B1 LEVEL WHOLE BLOOD SEE SEPARATE REPORT; VITAMIN B6,PYRIDOXAL PHOSPHATE SEE SEPARATE REPORT; VITAMIN E(ALPHA TOCOPHEROL) SEE SEPARATE REPORT; VITAMIN E(GAMMA TOCOPHEROL) SEE SEPARATE REPORT
[2019-12-05 15:10] LABS: CERULOPLASMIN SEE SEPARATE REPORT mg/dl; COPPER PLASMA SEE SEPARATE REPORT
== END ==
LOC: M LABDRAWC 11:44
PROVIDERS: ATTEND Psychiatry & Neurology Neurology
DX: E53.8 Deficiency of other specified B group vitamins (principal); E51.9 Thiamine deficiency, unspecified; E83.01 Wilson's disease; G72.9 Myopathy, unspecified

== ENCOUNTER 2019-11-16 17:02 | Inpatient (IN) | payer MEDICARE, OTHER ==
[~2019-11-16] VITALS: Ht 170.2 cm; Wt 107.5 kg
[2019-11-16] MEDS: NS 1,000 ML IV SCH (00:10)
[~2019-11-16 17:02] MED LIST changes: -ATOR80TA59 PO; -CARB25TA9 PO; -NAPR220C14 PO
[2019-11-16] MEDS ORDERED: NAPR220C14 PO (17:21)
[2019-11-16] MEDS ORDERED: CARB25TA9 PO (17:21)
[2019-11-16 18:36] LABS: BLOOD UREA NITROGEN 23 MG/DL (7-18); C REACTIVE PROTEIN QUANTITATIV 1.05 MG/DL (0.00-0.30); CALCIUM LEVEL 9.1 MG/DL (8.8-10.2); CARBON DIOXIDE LEVEL 29 MEQ/L (21-32); CHLORIDE LEVEL 103 MEQ/L (98-107); CREATININE FOR GFR 1.05 MG/DL (0.70-1.30); GLOMERULAR FILTRATION RATE > 60.0 (>42); GLUCOSE, FASTING 90 MG/DL (70-100); POTASSIUM SERUM 4.4 MEQ/L (3.5-5.1); SODIUM LEVEL 136 MEQ/L (136-145)
[2019-11-16 18:39] LABS: HEMATOCRIT 36.9 % (42.0-52.0); HEMOGLOBIN 12.1 g/dl (13.5-17.5); MEAN CORPUSCULAR HEMOGLOBIN 27.2 pg (27.0-33.0); MEAN CORPUSCULAR HGB CONC 32.8 g/dl (32.0-36.5); MEAN CORPUSCULAR VOLUME 82.9 fl (80.0-96.0); PLATELET COUNT, AUTOMATED 239 10^3/uL (150-450); RED BLOOD COUNT 4.45 10^6/uL (4.30-6.10); WHITE BLOOD COUNT 6.6 10^3/uL (4.0-10.0)
[2019-11-16] MEDS ORDERED: ATOR80TA59 PO (18:56)
[2019-11-16 20:52] VITALS: BP 160/85
--- NOTE | 2019-11-16 20:52 | REPVR ---
PROCEDURE INFORMATION: Exam: CT Head Without Contrast Exam date and time: 11/16/2019 8:24 PM Age: 79 years old Clinical indication: Weakness, extremity; Additional info: Leg weakness TECHNIQUE: Imaging protocol: Computed tomography of the head without contrast. Radiation optimization: All CT scans at this facility use at least one of these dose optimization techniques: automated exposure control; mA and/or kV adjustment per patient size (includes targeted exams where dose is matched to clinical indication); or iterative reconstruction. COMPARISON: CT Head without contrast 11/08/2013 12:27 PM FINDINGS: Brain: There is no evidence of intracranial bleed. Goodwin-white differentiation appears preserved. There is no evidence of mass effect. Ventricles: There is enlargement of the ventricles with mild increased since 2013. This may be the result of atrophy. This could also be seen with communicating type hydrocephalus and clinical correlation would be important. Bones/joints: There is no evidence of fracture. Sinuses: Clear paranasal sinuses Mastoid air cells: Clear mastoid air cells. Orbits: Symmetric orbits. Soft tissues: Unremarkable. IMPRESSION: 1. Enlargement of the ventricles and mildly increased since 2013 may be the result of atrophy. Communicating type hydrocephalus can give this appearance and clinical correlation would be important. 2. No evidence of bleed and no evidence of mass effect. Electronically signed by: Ruperto Lebron On 11/16/2019 20:51:51 PM
--- NOTE | 2019-11-16 20:53 | REPVR ---
PROCEDURE INFORMATION: Exam: CT Thoracic Spine Without Contrast Exam date and time: 11/16/2019 8:24 PM Age: 79 years old Clinical indication: Weakness; Additional info: Leg weakness TECHNIQUE: Imaging protocol: Computed tomography images of the thoracic spine without contrast. Radiation optimization: All CT scans at this facility use at least one of these dose optimization techniques: automated exposure control; mA and/or kV adjustment per patient size (includes targeted exams where dose is matched to clinical indication); or iterative reconstruction. COMPARISON: No relevant prior studies available. FINDINGS: Vertebrae: No compression fracture. Normal alignment. Bridging anterior osteophyte formation throughout the thoracic spine. No spinal stenosis. Advanced discogenic and facet degenerative changes throughout the spine. Soft tissues: Paraspinal soft tissues are unremarkable. IMPRESSION: 1. No fracture or malalignment. 2. Advanced degenerative spondylosis as above. . Electronically signed by: Carter Lin On 11/16/2019 20:53:12 PM
--- NOTE | 2019-11-16 20:57 | REPVR ---
PROCEDURE INFORMATION: Exam: CT Lumbar Spine Without Contrast Exam date and time: 11/16/2019 8:24 PM Age: 79 years old Clinical indication: Weakness; Additional info: Leg weakness TECHNIQUE: Imaging protocol: Computed tomography images of the lumbar spine without contrast. Radiation optimization: All CT scans at this facility use at least one of these dose optimization techniques: automated exposure control; mA and/or kV adjustment per patient size (includes targeted exams where dose is matched to clinical indication); or iterative reconstruction. COMPARISON: No relevant prior studies available. FINDINGS: Vertebrae: Discogenic and facet degenerative changes with facet hypertrophy cause central spinal canal stenosis from L2-L3 to L4-L5, most severe at L3-L4. Moderate neural foraminal stenosis throughout the lumbar spine. Grade 1 anterolisthesis at L4-L5 and grade 1 retrolisthesis at L3-L4. Multilevel endplate degenerative changes. No acute fracture or bone lesions. Vasculature: The suprarenal abdominal aorta is aneurysmal measuring 4.1 cm. Infrarenal abdominal aorta is borderline aneurysmal at 3.0 cm. Aortoiliac atherosclerotic disease. Bilateral iliac artery ectasia. Soft tissues: Unremarkable. IMPRESSION: 1. Multilevel degenerative spondylosis as above. Spinal stenosis from L2-L3 to L4-L5, most severe at L3-L4. 2. Multilevel neural foraminal stenosis. 3. Fusiform infrarenal and suprarenal abdominal aortic aneurysm. Electronically signed by: Carter Lin On 11/16/2019 20:57:20 PM
--- NOTE | 2019-11-16 21:04 | REPVR ---
PROCEDURE INFORMATION: Exam: CT Cervical Spine Without Contrast Exam date and time: 11/16/2019 8:24 PM Age: 79 years old Clinical indication: Weakness; Additional info: Leg weakness TECHNIQUE: Imaging protocol: Computed tomography images of the cervical spine without contrast. Radiation optimization: All CT scans at this facility use at least one of these dose optimization techniques: automated exposure control; mA and/or kV adjustment per patient size (includes targeted exams where dose is matched to clinical indication); or iterative reconstruction. COMPARISON: No relevant prior studies available. FINDINGS: Vertebrae: The cervical vertebra and facet joints there is no evidence of fracture. There is marked facet hypertrophy greater on the right. There is partial fusion of the anterior arch of C1 to the upper dens. appear in alignment. There is partial fusion of the anterior neural arch of C1 to the dens. There is some cystic degenerative change of the dens but no evidence of fracture. There is marked sclerosis and facet hypertrophy facet joints C2 through C5 on the right. There is also severe narrowing of the right C4 and C5 neural foramina secondary to osteophyte formation. C5-C6: There is a moderate posterior osteophyte C5-C6 and causing severe left C6 and C7 neural foraminal narrowing secondary to osteophyte formation. Soft tissues: There is no evidence of soft tissue swelling. Lungs: Lung apices are normal. IMPRESSION: No evidence of fracture. Degenerative changes as described above. Electronically signed by: Ruperto Lebron On 11/16/2019 21:04:21 PM
--- NOTE | 2019-11-16 22:37 | HPEPDOC ---
[facility] Medical History & Physical Date of Admission Nov 16, 2019 Date of Service: Nov 16, 2019 Primary Care Physician: TONI ELIZONDO PA-C Attending Physician: FELICITA CONTRERAS MD History and Physical TIME OF SERVICE: 1000PM CHIEF COMPLAINT: weakness HISTORY OF PRESENT ILLNESS: This 79 yr old M was sent by for MRI of the brain, cervical spine and lumbar spine with anesthesia assisted sedation because the patient is very clausterphobic. discussed the case with . For several months, the patient has had difficulties walking, has notice that his feet are shuffling and has tripped and fallen several times. His last fall was 1 month ago. The patient mentioned that it is possible that he may have Parkinsons; he admits to moving more slowly than usual, having small writing, having difficulties making turns when he walks and has a resting right upper extremity tremor. He denies having urinary incontinence, drooling, being told that he looks expressionless or sleepy, and worsening sense of smell. REVIEW OF SYSTEMS: 12 point review of systems negative except as listed in HPI PAST MEDICAL/ SURGICAL HISTORY: Prostate cancer s/p radiation Chronic stool incontinence Chronic HTN Dyslipidemia Obesity Carotid Artery stenosis L hip arthroplasty L knee replacement Chronic right knee OA (surgery will be scheduled soon) Hx of AAA rupture and repair SOCIAL HISTORY: -Tobacco /- Alcohol / - Drugs FAMILY HISTORY: Father CAD & of [place] at 48 / Mother breast cancer ALLERGIES: Please see below. HOME MEDICATIONS: Please see below. PHYSICAL EXAMINATION: Vital Signs Date Time Temp Pulse Resp B/P (MAP) Pulse Ox O2 Delivery O2 Flow Rate FiO2 11/16/19 17:03 97.1 69 18 168/106 (126) 97 Room Air GENERAL APPEARANCE: well nourished / well developed / NAD HEENT: EOMI / MM pink but dry CARDIOVASCULAR: RRR/ NMRG LUNGS: CTAB on RA ABDOMEN: obese MUSCULOSKELETAL: NCAT / JOE x 4 INTEGUMENT: cheeks slightly flushed NEUROLOGICAL: CN 2-12 intact / tongue midline / no nystagmus / strength 5/5 in except in right hip which patient attributes to pain due to OA PSYCHIATRIC: A&Ox 3 / able to understand and follow all commands LABORATORY DATA: 11/16/19 18:01 Nucleated Red Blood Cells % (auto) 0.0, Anion Gap 4L, Glomerular Filtration Rate > 60.0, Calcium Level 9.1, C-Reactive Protein, Quantitative 1.05H IMAGING: CT head IMPRESSION: 1. Enlargement of the ventricles and mildly increased since 2013 may be the result of atrophy. Communicating type hydrocephalus can give this appearance and clinical correlation would be important. 2. No evidence of bleed and no evidence of mass effect. CT cervical spine IMPRESSION: No evidence of fracture. Degenerative changes as described above. CT thoracic spine IMPRESSION: 1. No fracture or malalignment. 2. Advanced degenerative spondylosis as above. " CT lumbar spine IMPRESSION: 1. Multilevel degenerative spondylosis as above. Spinal stenosis from L2-L3 to L4-L5, most severe at L3-L4. 2. Multilevel neural foraminal stenosis. 3. Fusiform infrarenal and suprarenal abdominal aortic aneurysm. ASSESSMENT: is a 79 yr old w a hx of prostate cancer and OA who was sent from office for evaluation of weakness. PLAN: 1. Weakness /Unsteady Gait CT head neg for CVA / CT spine no lytic lesions Plan: admit to medical floor / day time team to f/u for sedation prior to MRI of the brain, cervical spine and lumbar spine (pt is NPO) / day time team to call for further work up or d/c plan / PT & OT consults 2. Communicating Hydrocephalus Plan: day time team to dicuss with 3. NN Anemia Plan: Iron studies & stool occult / hold naproxen 4. Prostate cancer s/p radiation Plan: f/u w Onc or Uro as scheduled 5. Chronic HTN Plan: spironolactone & metoprolol 6. Dyslipidemia Plan: atorvastatin 7. OA Plan: hold PO naxproxen / acetaminophen and Flector patches 8. Obesity BMI of 36.5 complicates care Plan: f/u w PCP for DM and sleep apnea screening DVT Px w SCDs Dispo: home possibly after 2 midnights stay Home Medications Scheduled Atorvastatin Calcium (Atorvastatin Calcium) 80 Mg Tablet, 80 MG PO DAILY Carbidopa/Levodopa (Carbidopa-Levodopa 25-100 Tab) 1 Each Tablet, 0.5 TAB PO QID 0600/1000/1400/1800 Metoprolol Tartrate (Metoprolol Tartrate) 25 Mg Tab, 25 MG PO BID Spironolactone (Spironolactone) 25 Mg Tablet, 25 MG PO DAILY Scheduled PRN Naproxen Sodium (Aleve) 220 Mg Capsule, 220 MG PO BID PRN for PAIN Allergies Coded Allergies: No Known Allergies (Unverified , 12/28/18) A-FIB/CHADSVASC A-FIB History Current/History of A-Fib/PAF?: No Current PO Anticoag Therapy: No FELICITA CONTRERAS MD Nov 16, 2019 22:37
[2019-11-16] MEDS ORDERED: NAPROXEN 250 MG TAB PO SCH (22:45)
[2019-11-16] MEDS: SINEMET 25-100 MG TAB PO SCH (23:57)
[2019-11-16] MEDS: METOPROLOL TART 25 MG TABLET PO SCH (23:58)
[2019-11-17] VITALS (7 sets, daily range): BP systolic 133–164; BP diastolic 75–87
[2019-11-17 01:14] LABS: FERRITIN 118 NG/ML (26-388); IRON (FE) 52 UG/DL (65-175); PERCENT SATURATION 17.1 % (19.7-50.0); TOTAL IRON BINDING CAPACITY 304 UG/DL (250-450)
[2019-11-17] MEDS: ACETAMINOPHEN 650MG ER TAB (TYLENOL ARTHRITIS) PO SCH ×4 (06:00→22:27)
[2019-11-17] MEDS: METOPROLOL TART 25 MG TABLET PO SCH ×2 (07:43→20:45)
[2019-11-17] MEDS: SINEMET 25-100 MG TAB PO SCH ×4 (07:44→20:44)
[2019-11-17] MEDS: DICLOFENAC EPOLAMINE 1.3 % PATCH TOP SCH ×2 (07:45→22:28)
[2019-11-17] MEDS: NS 1,000 ML IV SCH ×2 (07:45→20:46)
[2019-11-17 08:29] LABS: HEMATOCRIT 39.4 % (42.0-52.0); HEMOGLOBIN 12.8 g/dl (13.5-17.5); MEAN CORPUSCULAR HEMOGLOBIN 27.3 pg (27.0-33.0); MEAN CORPUSCULAR HGB CONC 32.5 g/dl (32.0-36.5); PLATELET COUNT, AUTOMATED 242 10^3/uL (150-450); RED BLOOD COUNT 4.69 10^6/uL (4.30-6.10); WHITE BLOOD COUNT 5.4 10^3/uL (4.0-10.0)
[2019-11-17 08:45] LABS: BLOOD UREA NITROGEN 20 MG/DL (7-18); CALCIUM LEVEL 8.9 MG/DL (8.8-10.2); CARBON DIOXIDE LEVEL 29 MEQ/L (21-32); CHLORIDE LEVEL 105 MEQ/L (98-107); CREATININE FOR GFR 0.96 MG/DL (0.70-1.30); GLOMERULAR FILTRATION RATE > 60.0 (>42); GLUCOSE, FASTING 92 MG/DL (70-100); MAGNESIUM LEVEL 2.1 MG/DL (1.8-2.4); POTASSIUM SERUM 4.6 MEQ/L (3.5-5.1); SODIUM LEVEL 139 MEQ/L (136-145)
[2019-11-17] MEDS ORDERED: ATORVASTATIN 20 MG TAB PO SCH (09:00)
[2019-11-17] MEDS ORDERED: SPIRONOLACTONE 25 MG TAB PO SCH (09:00)
--- NOTE | 2019-11-17 11:15 | IPNPDOC ---
Subjective Date Seen The patient was seen on 11/17/19. Subjective Chief Complaint/HPI no new complaints, sitting in chair. General: Denies: ROS Unobtainable, Chills, Night Sweats, Fatigue, Malaise, Normal Appetite, Other Symptoms Constitutional: Denies: Chills, Fever, Malaise, Night Sweats, Weakness, Fatigue, Weight Loss, Lethargy, Other Skin: Denies: Rash, Lesions, Jaundice, Bruising, Itching, Dry, Breakdown, Nail Changes, Other Pulmonary: Denies: Dyspnea, Cough, Pleuritic Chest Pain, Other Symptoms Cardiovascular: Denies: Chest Pain, Palpitations, Orthopnea, Paroxysmal Noc. Dyspnea, Edema, Lt Headedness, Other Symptoms Gastrointestinal: Denies: Nausea, Vomiting, Abdominal Pain, Diarrhea, Constipation, Melena, Hematochezia, Other Symptoms Musculoskeletal: Denies: Neck Pain, Back Pain, Shoulder Pain, Arm Pain, Hand Pain, Leg Pain, Foot Pain, Joint Pain, Muscle Pain, Spasms, Other Symptoms Neurological: Denies: Weakness, Numbness, Incoordination, Change in speech, Confusion, Seizures, Other Symptoms Objective Physical Examination General Exam: Positive: Alert, Cooperative Eye Exam: Positive: PERRLA Neck Exam: Positive: Supple Chest Exam: Positive: Clear to auscultation, Normal air movement Heart Exam: Positive: Rate Normal, Normal S1, Normal S2 Abdomen Exam: Positive: Normal bowel sounds, Soft, Tenderness Extremity Exam: Positive: Normal pulses Neuro Exam: Positive: Strength at 5/5 X4 ext, Sensation Intact, Cranial Nerves 3-12 NL Assessment /Plan Problems (1) Weakness of both lower extremities Status: Acute Problem Text: Weakness /Unsteady Gait CT head neg for CVA / CT spine no lytic lesions Discussed with Dr Davis He recommended MR C/T/LS and brain with out contrast PT /OT eval called Also Discussed with Dr Levy in Anesthesiology dept for Conscious sedation protocol while pt is in MR secondary to Claustrophobia Once MR reports are available, will call back Dr davis for further recommendations and plans. continue present meds Plan/VTE VTE Prophylaxis Ordered?: Yes Disposition Communicating Hydrocephalus MRs pending NN Anemia Iron studies & stool occult / hold naproxen Prostate cancer s/p radiation f/u w Onc or Uro as scheduled Chronic HTN spironolactone & metoprolol Dyslipidemia atorvastatin VS, I&O, [facility]H, [facility] Vital Signs/I&O Vital Signs Date Time Temp Pulse Resp B/P (MAP) Pulse Ox O2 Delivery O2 Flow Rate FiO2 11/17/19 07:43 63 133/76 11/17/19 04:00 97.3 18 97 Room Air I&O- Last 24 Hours up to 6 AM 11/17/19 05:59 Intake Total 0 ml Output Total 0 ml Balance 0 ml Laboratory Data 24H LABS Laboratory Tests 2 11/16/19 18:01: Nucleated Red Blood Cells % (auto) 0.0, Anion Gap 4L, Glomerular Filtration Rate > 60.0, Calcium Level 9.1, Iron Level 52L, Total Iron Binding Capacity 304, Transferrin % Saturation 17.1L, Ferritin 118, C-Reactive Protein, Quantitative 1.05H 11/17/19 07:57: Nucleated Red Blood Cells % (auto) 0.0, Anion Gap 5L, Glomerular Filtration Rate > 60.0, Calcium Level 8.9, Magnesium Level 2.1 CBC/BMP Laboratory Tests 11/16/19 18:01 11/17/19 07:57 CORTEZ COON MD Nov 17, 2019 11:15
[2019-11-17] MEDS: FERROUS SULFATE 325MG TAB PO SCH ×2 (11:52→20:44)
[2019-11-17] MEDS ORDERED: MIDAZOLAM INJ 2MG/2ML VIAL (J2250 PER 1MG) As Ordered ONE (17:20)
--- NOTE | 2019-11-17 18:58 | REPVR ---
PROCEDURE INFORMATION: Exam: MR Head Without Contrast Exam date and time: 11/17/2019 6:20 PM Age: 79 years old Clinical indication: Walking, difficulty; Additional info: Leg weakness TECHNIQUE: Imaging protocol: MR of the head without contrast. COMPARISON: CT Head without contrast 11/16/2019 8:21 PM, head CT 11/08/2013. FINDINGS: Brain: There is no acute infarction. There is no acute intracranial hemorrhage, mass or mass effect. There are no significant white matter lesions. There are no prior microhemorrhages. Ventricles: Ventriculomegaly is apparent which is out of proportion to the degree of brain volume loss. Bones/joints: Unremarkable. Sinuses: Normal as visualized. No acute sinusitis. Mastoid air cells: Normal as visualized. No mastoid effusion. Orbits: Unremarkable. Soft tissues: Unremarkable. IMPRESSION: 1. No acute intracranial findings. 2. There is ventriculomegaly which appears to be out of proportion to the degree of brain volume loss which can be seen with normal pressure hydrocephalus. The findings however are stable dating back to head CT of 11/08/2013. Electronically signed by: Sammi Blum On 11/17/2019 18:57:50 PM
--- NOTE | 2019-11-17 20:46 | REPVR ---
PROCEDURE INFORMATION: Exam: MR Lumbar Spine Without Contrast. Exam date and time: 11/17/2019 7:36 PM Age: 79 years old Clinical indication: Weakness; Additional info: Leg weakness TECHNIQUE: Imaging protocol: Multiplanar magnetic resonance images of the lumbar spine without intravenous contrast. COMPARISON: CT Spine, lumbar w/o contrast 11/16/2019 8:25 PM FINDINGS: Vertebrae: No acute compression fracture in the lumbar spine. There is a probable large hemangioma in the L3 vertebral body. It extends into the right pedicle. Spinal cord: The conus medullaris is normal appearance at the L1-L2 level. L1-L2: No significant spinal canal stenosis or neural foraminal narrowing. L2-L3: No significant spinal canal stenosis or neural foraminal narrowing. L3-L4: Mild spinal canal stenosis due to bulging annulus and ligamentum flavum hypertrophy with narrowing of the lateral recesses which may affect the exiting L4 nerve roots. The presumed hemangioma mildly expands the posterior aspect of the vertebral body further narrowing the right lateral recess. The neural foramina are patent. L4-L5: Grade 1 anterior spondylolisthesis with resultant narrowing of the lateral recesses although the exiting L5 nerve roots do not appear to be compressed. The neural foramina are patent. There is moderate spinal canal stenosis. There are degenerated subluxed facet joints. L5-S1: Small central annular tear without spinal canal stenosis or significant neural foraminal narrowing. Soft tissues: Arterial ectasia. IMPRESSION: 1. There may be compression of the exiting L4 nerve roots at the L3-L4 level due to diffusely bulging annulus. 2. Although there is a grade 1 anterior spondylolisthesis at the L4-L5 level there does not appear to be neural compromise. Electronically signed by: Sammi Blum On 11/17/2019 20:46:17 PM
--- NOTE | 2019-11-17 20:55 | REPVR ---
PROCEDURE INFORMATION: Exam: MR Cervical Spine Without Contrast Exam date and time: 11/17/2019 6:20 PM Age: 79 years old Clinical indication: Weakness; Additional info: Leg weakness TECHNIQUE: Imaging protocol: Multiplanar magnetic resonance images of the cervical spine without contrast. COMPARISON: CT Spine,cervical w/o contrast 11/16/2019 8:21 PM FINDINGS: Vertebrae: There is straightening of the normal cervical lordosis. There appears to be pannus at the C1-C2 level narrowing the ventral spinal canal without significant stenosis. Spinal cord: There is no abnormal signal in the cervical spinal cord. The cord does not appear to be compressed. C2-C3: No significant spinal canal stenosis or neural foraminal narrowing. C3-C4: No significant spinal canal stenosis or neural foraminal narrowing. C4-C5: No significant spinal stenosis. There is moderate narrowing of the right neural foramen due to degeneration of the uncovertebral joint. C5-C6: Mild spinal canal stenosis due to mildly bulging annulus and endplate degeneration. Moderate narrowing of the left neural foramen which could affect the left C6 nerve root. C6-C7: No significant spinal stenosis. Mild to moderate narrowing of the left neural foramen. C7-T1: No significant spinal canal stenosis or neural foraminal narrowing. Vertebral arteries: Expected flow voids in the vertebral arteries. Soft tissues: Unremarkable. IMPRESSION: No significant spinal canal stenosis in the cervical spine or cord compression. Multilevel neural foraminal narrowing due to degenerative disease. Electronically signed by: Sammi Blum On 11/17/2019 20:55:56 PM
--- NOTE | 2019-11-17 21:01 | REPVR ---
PROCEDURE INFORMATION: Exam: MR Thoracic Spine Without Contrast Exam date and time: 11/17/2019 6:58 PM Age: 79 years old Clinical indication: Weakness; Additional info: Leg weakness TECHNIQUE: Imaging protocol: Multiplanar magnetic resonance images of the thoracic spine without contrast. COMPARISON: CT Spine,thoracic w/o contrast 11/16/2019 8:25 PM FINDINGS: Vertebrae: No acute compression fracture. Spinal cord: Normal signal. No cord compression. Discs/Spinal canal/Neural foramina: No spinal canal stenosis or significant neural foraminal narrowing. Soft tissues: Unremarkable. IMPRESSION: No evidence of compression of the thoracic spinal cord. Electronically signed by: Sammi Blum On 11/17/2019 21:00:42 PM
--- NOTE | 2019-11-17 21:36 | DS.PDOC ---
Discharge Summary General Date of Admission Nov 16, 2019 at 17:03 Date of Discharge 20 Primary Care Physician: TONI ELIZONDO PA-C Attending Physician: CORTEZ COON MD Specialist/Consultants Involve: MANUEL KEVIN MD Discharge Summary PROCEDURES PERFORMED DURING STAY: [None]. ADMITTING DIAGNOSES: 1. Weakness /Unsteady Gait 2. Communicating Hydrocephalus 3. NN Anemia DISCHARGE DIAGNOSES: 1. Left ICA Occlusion 2. Weakness /Unsteady Gait 3. Communicating Hydrocephalus 4. NN Anemia COMPLICATIONS/CHIEF COMPLAINT: Weakness Of Both Lower Extremities. HISTORY OF PRESENT ILLNESS: Per "This 79 yr old M was sent by for MRI of the brain, cervical spine and lumbar spine with anesthesia assisted sedation because the patient is very clausterphobic. discussed the case with . For several months, the patient has had difficulties walking, has notice that his feet are shuffling and has tripped and fallen several times. His last fall was 1 month ago. The patient mentioned that it is possible that he may have Parkinsons; he admits to moving more slowly than usual, having small writing, having difficulties making turns when he walks and has a resting right upper extremity tremor. He denies having urinary incontinence, drooling, being told that he looks expressionless or sleepy, and worsening sense of smell." HOSPITAL COURSE: The patient had the following scans done prior to transfer to the medical floor. CT head IMPRESSION: 1. Enlargement of the ventricles and mildly increased since 2013 may be the result of atrophy. Communicating type hydrocephalus can give this appearance and clinical correlation would be important. 2. No evidence of bleed and no evidence of mass effect. CT cervical spine IMPRESSION: No evidence of fracture. Degenerative changes as described above. CT thoracic spine IMPRESSION: 1. No fracture or malalignment. 2. Advanced degenerative spondylosis as above. " CT lumbar spine IMPRESSION: 1. Multilevel degenerative spondylosis as above. Spinal stenosis from L2-L3 to L4-L5, most severe at L3-L4. 2. Multilevel neural foraminal stenosis. 3. Fusiform infrarenal and suprarenal abdominal aortic aneurysm. On the he had the following scans done. MR brain w/o contrast "IMPRESSION: 1. No acute intracranial findings. 2. There is ventriculomegaly which appears to be out of proportion to the degree of brain volume loss which can be seen with normal pressure hydrocephalus. The findings however are stable dating back to head CT of 11/08/2013.ADDENDUM REPORT 1 No flow is detected in the left internal carotid artery in the skull base. Flow is seen in the left M1 and A1 segments The Radiologist transmission tester informed us that she saw a large L ICA occlusion with no flow and was concerned that the patient may need thrombolysis. The case was discussed with at [facility] who agreed with transfer." MRI cervical spine "IMPRESSION: No significant spinal canal stenosis in the cervical spine or cord compression. Multilevel neural foraminal narrowing due to degenerative disease." MRI thoracic spine "IMPRESSION: No evidence of compression of the thoracic spinal cord. MRI lumbar spine "IMPRESSION: 1. There may be compression of the exiting L4 nerve roots at the L3-L4 level due to diffusely bulging annulus. 2. Although there is a grade 1 anterior spondylolisthesis at the L4-L5 level there does not appear to be neural compromise. " He was started on ASA 325mg prior to transfer to [facility]. DISCHARGE MEDICATIONS: Please see below. ALLERGIES: Please see below. PHYSICAL EXAMINATION ON DISCHARGE: VITAL SIGNS: Please see below. GENERAL: NAD PSYCHIATRIC EXAMINATION: A&O x 3 LABORATORY DATA: Please see below. IMAGING: see above PROGNOSIS: fair ACTIVITY: [As tolerated]. DIET: regular DISCHARGE PLAN: transfer to [facility] DISPOSITION: . DISCHARGE INSTRUCTIONS: 1. follow up with Neurologist once discharged from [facility] ITEMS TO FOLLOWUP ON ON OUTPATIENT: 1. Work-up at [facility] DISCHARGE CONDITION: [Stable]. TIME SPENT ON DISCHARGE: Approximately 50 minutes. Vital Signs/I&Os Vital Signs Date Time Temp Pulse Resp B/P (MAP) Pulse Ox O2 Delivery O2 Flow Rate FiO2 11/17/19 20:45 60 148/75 11/17/19 20:30 98.0 18 97 Room Air I&O- Last 24 Hours up to 6 AM 11/17/19 06:00 Intake Total 0 ml Output Total 0 ml Balance 0 ml Laboratory Data Labs 24H Laboratory Tests 2 11/17/19 07:57: Nucleated Red Blood Cells % (auto) 0.0, Anion Gap 5L, Glomerular Filtration Rate > 60.0, Calcium Level 8.9, Magnesium Level 2.1 CBC/BMP Laboratory Tests 11/17/19 07:57 Microbiology Microbiology 11/17/19 Respiratory Virus Panel (PCR) ([facility]) - Final, Complete Discharge Medications Scheduled Atorvastatin Calcium (Atorvastatin Calcium) 80 Mg Tablet, 80 MG PO DAILY, (Reported) Carbidopa/Levodopa (Carbidopa-Levodopa 25-100 Tab) 1 Each Tablet, 0.5 TAB PO QID, (Reported) 0600/1000/1400/1800 Metoprolol Tartrate (Metoprolol Tartrate) 25 Mg Tab, 25 MG PO BID, (Reported) Spironolactone (Spironolactone) 25 Mg Tablet, 25 MG PO DAILY, (Reported) Scheduled PRN Naproxen Sodium (Aleve) 220 Mg Capsule, 220 MG PO BID PRN for PAIN, (Reported) Allergies Coded Allergies: No Known Allergies (Unverified , 12/28/18) FELICITA CONTRERAS MD Nov 17, 2019 21:36
[2019-11-17] MEDS ORDERED: ASPIRIN 325 MG TAB PO ONE (22:00)
[2019-11-18] MEDS ORDERED: propofoL 200 MG/20 ML VIAL ONE (00:09)
[2019-11-18] MEDS ORDERED: LIDOCAINE 1% SDV 5ML VIAL ONE (00:09)
[2019-11-18] MEDS ORDERED: ePHEDrine SULFATE 25 MG/5 ML(5MG/ML) SYRINGE ONE (00:09)
--- NOTE | 2019-11-28 16:02 | REP ---
PORTABLE CHEST COMPARISON: 04/22/2019 The technique utilized in obtaining the radiograph as magnified the cardiac silhouette and accentuated the interstitial markings. Once again, there are chronic lung field changes status quo. There is cardiomegaly status quo. No acute pathology parenchymal opacity or pleural effusions have developed since the last exam. There is evidence of an age undetermined fracture of the distal clavicle. This was not present on a chest examination of 12/26/2018 and the latest prior exam also showed no evidence of a fracture of the distal clavicle. IMPRESSION: 1. Cardiomegaly accentuated by technique. 2. Interstitial fibrotic changes accentuated by technique, but no evidence of acute cardiopulmonary disease. 3. Age undetermined fractured distal left clavicle. Correlate clinically. MTDD
--- NOTE | 2019-12-03 18:49 | ECGEPIP ---
[facility] - ED Test Date: 2019-11-16 Pat Name: DORA BENITEZ Department: Room: [place] [address] Gender: Male Oncology Social Work: lucy : 1940 Requested By: Darwin Gorman Order Number: [id number] Reading MD: Darwin Barajas Measurements Intervals [place] Rate: 61 P: 24 VT: 218 QRS: -1 QRSD: 78 T: 12 QT: 397 QTc: 401 Interpretive Statements SINUS RHYTHM WITH FIRST DEGREE AV BLOCK INFERIOR MYOCARDIAL INFARCTION, PROBABLY OLD ABNORMAL ECG SEE DOWNTIME SCANNED REPORT
== END 2019-11-18 00:10 | disposition short-term general hospital (02) | DRG 68 ==
LOC: M ED 17:02 → M ED INP 17:03 → OBSVTOIN 17:03 → ENRESERV 20:07 → M MS5PR 20:40 → M MSPAV 11-17 18:57
PROVIDERS: ADMIT Internal Medicine; ATTEND Internal Medicine
DX: I65.22 Occlusion and stenosis of left carotid artery (principal); G91.0 Communicating hydrocephalus; R26.89 Other abnormalities of gait and mobility; Z79.899 Other long term (current) drug therapy; Z85.46 Personal history of malignant neoplasm of prostate; I10 Essential (primary) hypertension; E78.5 Hyperlipidemia, unspecified; Z96.652 Presence of left artificial knee joint; Z96.642 Presence of left artificial hip joint; E66.9 Obesity, unspecified; M17.11 Unilateral primary osteoarthritis, right knee; D64.9 Anemia, unspecified; Z68.36 Body mass index [BMI] 36.0-36.9, adult; F40.240 Claustrophobia

== ENCOUNTER → 2019-12-26 | Outpatient (CLI) | payer MEDICARE, OTHER ==
[~2019-12-26] MED LIST changes: +ATOR80TA59 PO; +CARB25TA9 PO; +NAPR220C14 PO
--- NOTE | 2020-01-01 14:24 | REP ---
TWO-VIEW CHEST COMPARISON: 11/16/2019, as well as other prior exams. HISTORY: Normal pressure hydrocephalus, preoperative exam. TECHNIQUE: Two views of the chest are performed. FINDINGS: There is mild bilateral stable fibrotic scarring. There is no acute infiltrate or pulmonary edema. The heart is not significantly enlarged. There is calcification and ectasia of the thoracic aorta. The mediastinal silhouette is unchanged. There are degenerative changes of the spine. IMPRESSION: Stable chronic findings with no evidence of acute pulmonary disease. MTDD
== END ==
LOC: M CLY 13:13
PROVIDERS: ATTEND Nurse Practitioner Family
DX: Z01.818 Encounter for other preprocedural examination (principal); G91.2 (Idiopathic) normal pressure hydrocephalus

== ENCOUNTER → 2019-12-26 | Outpatient (REF) | payer MEDICARE, OTHER ==
[2019-12-26 16:26] LABS: BASO % 0.6 % (0.0-1.0); EOS # 0.2 10^3/uL (0.0-0.5); EOS % 2.9 % (0.0-3.0); HEMATOCRIT 41.8 % (42.0-52.0); HEMOGLOBIN 13.4 g/dl (13.5-17.5); LYMPH # 0.9 10^3/uL (1.5-5.0); LYMPH % 13.2 % (24.0-44.0); MEAN CORPUSCULAR HEMOGLOBIN 26.8 pg (27.0-33.0); MEAN CORPUSCULAR HGB CONC 32.1 g/dl (32.0-36.5); MEAN CORPUSCULAR VOLUME 83.6 fl (80.0-96.0); MONO # 0.5 10^3/uL (0.0-0.8); MONO % 7.9 % (0.0-5.0); NEUTROPHILS # 4.9 10^3/uL (1.5-8.5); NEUTROPHILS % 73.7 % (36.0-66.0); PLATELET COUNT, AUTOMATED 301 10^3/uL (150-450); WHITE BLOOD COUNT 6.6 10^3/uL (4.0-10.0)
[2019-12-26 16:36] LABS: INR 0.92; PROTHROMBIN TIME 12.6 SECONDS (12.5-14.3)
[2019-12-26 16:37] LABS: PARTIAL THROMBOPLASTIN TIME 31.3 SECONDS (24.2-38.5)
[2019-12-26 16:57] LABS: ALBUMIN 3.8 GM/DL (3.2-5.2); ALT/SGPT 24 U/L (12-78); BILIRUBIN,TOTAL 0.5 MG/DL (0.2-1.0); BLOOD UREA NITROGEN 21 MG/DL (7-18); CALCIUM LEVEL 9.5 MG/DL (8.8-10.2); CARBON DIOXIDE LEVEL 29 MEQ/L (21-32); CHLORIDE LEVEL 102 MEQ/L (98-107); CREATININE FOR GFR 1.07 MG/DL (0.70-1.30); GLOMERULAR FILTRATION RATE > 60.0 (>42); GLUCOSE, FASTING 97 MG/DL (70-100); POTASSIUM SERUM 4.8 MEQ/L (3.5-5.1); SODIUM LEVEL 137 MEQ/L (136-145); TOTAL PROTEIN 7.3 GM/DL (6.4-8.2)
== END ==
LOC: M SFHCCLAY 12:58
PROVIDERS: ATTEND Nurse Practitioner Family
DX: Z01.818 Encounter for other preprocedural examination (principal); G91.2 (Idiopathic) normal pressure hydrocephalus
CPT/HCPCS: 71046; 80053; 85025; 85610; 85730; G0463

== ENCOUNTER 2020-01-25 15:15 | Emergency (ER) | payer MEDICARE, OTHER ==
[~2020-01-25] VITALS: Ht 167.6 cm; Wt 104.5 kg
--- NOTE | 2020-01-25 16:15 | REP ---
INDICATION: hydrocephalus. COMPARISON: Comparison CT study November 16, 2019.. TECHNIQUE: Helical scanning is acquired. 5 mm axial images were reformatted. Coronal MPR images were generated. FINDINGS: In the interval since the prior exam, the patient is undergone right-sided ventriculostomy and ventriculoperitoneal shunt catheter placement. The tip of the ventriculostomy catheter is seen in the anterior horn of the right for lateral ventricle. Ventricular size has decreased substantially since the November 16, 2019 study. There is no evidence of extra-axial fluid collection or parenchymal hemorrhage. There is mild generalized volume loss. Vascular calcification is seen in the distal vertebral and distal carotid arteries as before. The bony calvarium is intact apart from the ventriculostomy defect. There is no evidence of mass, infarction, or midline shift. IMPRESSION: Interval right-sided ventriculostomy with ventriculoperitoneal shunt tube. Decrease in the size of the ventricles since November 16, 2019. Minimal diffuse atrophy and vascular calcification. No acute intracranial abnormality.. <Electronically signed by Walt Rubin > 01/25/20 [id number]
--- NOTE | 2020-01-25 16:58 | REP ---
INDICATION: shunt. COMPARISON: CT brain without 01/25/2020. TECHNIQUE: Six images with AP lateral views of the skull chest and abdomen. FINDINGS: AP lateral skull: A right-sided ventriculostomy drain extending to near the midline as on CT. I do not see any disconnection tubing. Courses of into the right side of the neck. Chest: A tracheal ostomy drain across the anterior chest on the right side. Abdomen pelvis: Ventriculostomy drain extends down the abdomen on the right side curving into the upper pelvis overlying the le right iliac wing and tip pointing upward along the 1st sacral segment region. Prostate clips noted in the midline. A left total hip arthroplasty. Multiple surgical clips in the upper abdomen near the GE junction. An apparent right nephrostomy tube is also suggested or other drain. IMPRESSION: Ventriculostomy drain extends via the right frontal cortex into the expected region of the right ventricle just off the midline. No evidence of tubing disconnect. Tube coursing down the neck, overlying the right chest and into the right abdomen and pelvis curving back upward and ending by overlying the 1st sacral segment. <Electronically signed by Ross Baldwin > 01/25/20 [id number]
[2020-01-25] MEDS ORDERED: PROPARACAINE 0.5% OPHTH SOL 15ML As Ordered ONE (17:09)
[2020-01-25] MEDS ORDERED: PROPARACAINE 0.5% OPHTH SOL 15ML OS ONE (17:15)
[2020-01-25 17:40] VITALS: BP 138/94
--- NOTE | 2020-01-26 09:58 | ECGEPIP ---
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
== END 2020-01-25 17:56 | disposition home or self-care (01) ==
LOC: M ED 15:15
DX: I10 Essential (primary) hypertension (principal); R94.31 Abnormal electrocardiogram [ECG] [EKG]; E78.5 Hyperlipidemia, unspecified; G91.2 (Idiopathic) normal pressure hydrocephalus; Z79.899 Other long term (current) drug therapy

== ENCOUNTER → 2020-03-21 | Outpatient (CLI) | payer MEDICARE, OTHER ==
[~2020-03-21] MED LIST changes: +CENTTAB16 PO; +LASI20TA3 PO
[2020-03-21 09:06] LABS: HEMATOCRIT 41.5 % (42.0-52.0); HEMOGLOBIN 13.3 g/dl (13.5-17.5); MEAN CORPUSCULAR HEMOGLOBIN 26.9 pg (27.0-33.0); PLATELET COUNT, AUTOMATED 272 10^3/uL (150-450); RED BLOOD COUNT 4.94 10^6/uL (4.30-6.10); WHITE BLOOD COUNT 6.3 10^3/uL (4.0-10.0)
[2020-03-21 09:23] LABS: INR 0.92; PROTHROMBIN TIME 12.6 SECONDS (12.5-14.3)
--- NOTE | 2020-03-21 09:29 | REP ---
INDICATION: PREOP COMPARISON: 12/26/2019 TECHNIQUE: PA and lateral. FINDINGS: The mediastinum and cardiac silhouette are stable. Tortuous atherosclerotic aorta again noted. Ventriculoperitoneal shunt along the right-side of the neck and chest identified. The lung munoz demonstrate chronic changes without acute consolidation, effusion, or pneumothorax. The skeletal structures are intact and normal. IMPRESSION: 1. Chronic appearing changes. 2. No acute cardiopulmonary process appreciated. <Electronically signed by Shamar Portillo > 03/21/20 [id number]
[2020-03-21 09:37] LABS: ERYTHROCYTE SEDIMENTATION RATE 43 mm/hr (0-20)
[2020-03-21 09:39] LABS: ALBUMIN 3.8 GM/DL (3.2-5.2); ALT/SGPT 24 U/L (12-78); BILIRUBIN,TOTAL 0.4 MG/DL (0.2-1.0); BLOOD UREA NITROGEN 27 MG/DL (7-18); CARBON DIOXIDE LEVEL 27 MEQ/L (21-32); CHLORIDE LEVEL 105 MEQ/L (98-107); CREATININE FOR GFR 1.19 MG/DL (0.70-1.30); GLOMERULAR FILTRATION RATE > 60.0 (>42); GLUCOSE, FASTING 97 MG/DL (70-100); POTASSIUM SERUM 4.5 MEQ/L (3.5-5.1); SODIUM LEVEL 138 MEQ/L (136-145); TOTAL PROTEIN 7.1 GM/DL (6.4-8.2)
--- NOTE | 2020-03-21 16:28 | ECGEPIP ---
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
== END ==
LOC: M LAB 08:19
PROVIDERS: ATTEND Orthopaedic Surgery
DX: Z01.818 Encounter for other preprocedural examination (principal)

== ENCOUNTER → 2020-03-27 | Outpatient (CLI) | payer MEDICARE, OTHER | LOC: M LABSMTC 10:50 | PROVIDERS: ATTEND Anesthesiology | DX: Z01.812 Encounter for preprocedural laboratory examination (principal); Z20.822 Contact with and (suspected) exposure to COVID-19 ==

== ENCOUNTER 2020-04-01 06:07 | Inpatient (IN) | payer MEDICARE, OTHER ==
[~2020-04-01] VITALS: Ht 167.6 cm; Wt 108.1 kg
[2020-04-01] MEDS ORDERED: LR 1,000 ML IV ONE (07:00)
[2020-04-01] MEDS ORDERED: ceFAZolin SOD 2 GM in IV 1 EA IV ONE (07:00)
[2020-04-01] MEDS ORDERED: ACETAMINOPHEN 500 MG TAB PO ONE (07:00)
[2020-04-01] MEDS ORDERED: fentaNYL 100 MCG/2 ML INJECTION (J3010) As Ordered ONE ×2 (07:17→10:46)
[2020-04-01] MEDS ORDERED: LIDOCAINE 2% 100MG/5ML SDV (FOR ANES.) As Ordered ONE (07:18)
[2020-04-01] MEDS ORDERED: propofoL 500 MG/50 ML VIAL As Ordered ONE (07:18)
[2020-04-01] MEDS ORDERED: ONDANSETRON 4MG/2ML VIAL As Ordered ONE (07:18)
[2020-04-01] MEDS ORDERED: EPINEPHrine INJ 1 MG/ML 1ML AMP As Ordered ONE (07:23)
[2020-04-01] MEDS ORDERED: ceFAZolin 1GM VIAL (J0690 PER 500MG) As Ordered ONE (07:23)
[2020-04-01] MEDS ORDERED: TRANEXAMIC ACID 100 MG/ML 10ML VIAL As Ordered ONE (07:23)
[2020-04-01] MEDS ORDERED: ePHEDrine SULFATE 25 MG/5 ML(5MG/ML) SYRINGE As Ordered ONE ×2 (08:19→08:44)
[2020-04-01] MEDS ORDERED: PHENYLephrine 500MCG 5ML (100MCG/ML) SYRINGE As Ordered ONE (08:49)
--- NOTE | 2020-04-01 10:38 | REP ---
INDICATION: POST OP IN PACU Status post arthroplasty. COMPARISON: None. TECHNIQUE: AP and cross-table lateral views. FINDINGS: The patient is status post right hip replacement with normal positioning and appearance to the femoral and acetabular components. Overlying postsurgical changes appreciated. IMPRESSION: Satisfactory right hip replacement radiographs. <Electronically signed by Shamar Portillo > 04/01/20 [id number]
[2020-04-01] MEDS ORDERED: oxyCODONE 5MG TAB As Ordered ONE (10:46)
--- NOTE | 2020-04-01 10:51 | RO ---
OPERATIVE NOTE DATE OF OPERATION: 04/01/2020 PREOPERATIVE DIAGNOSIS: Right hip degenerative arthritis. POSTOPERATIVE DIAGNOSIS: Right hip degenerative arthritis. PROCEDURE: Right total hip arthroplasty using a size 7 SUMMIT Standard Stem with a +5 neck and a 40-mm ball and a 60-mm sector Gription cup with a neutral polyethylene 40-mm liner, one screw in the acetabulum. SURGEON: Danita Kelly M.D. [employer] RO[employer] ATTENDANT: Eloise Novak PA-C ANESTHESIA: Spinal. COMPLICATIONS: None. ESTIMATED BLOOD LOSS: 200 mL. COMPLICATIONS: None. SPECIMENS: Femoral head. PROCEDURE: Antibiotics were given intravenously preoperatively. Successful spinal anesthetic was induced. He was placed in the lateral decubitus position on a Teachey hip positioner. The down leg was well-padded, especially the peroneal nerve, axillary roll utilized. The right lower extremity was carefully prepped and draped in the usual sterile fashion. After an appropriate time out, a longitudinal incision was made for a direct lateral approach to the hip. Bovie cautery was used to coagulate the crossing vessels down to the tensor fascia, which was then divided in line with the skin incision. We split the gluteus medius and the anterior one-third, posterior two-third junction, and divided the underlying gluteus minimus and the anterior hip capsule, and carefully dissected proximally as we went distally, then externally rotated and dislocated the hip anteriorly. Piriformis fossa was identified and then the starting reamer placed, followed with a canal finder reamer, and then a lateralizing reamer, and then we reamed up to a size 8 based on our preoperative template. Proximal neck osteotomy was then performed using the guide and then we began broaching up to a size 7, and then actually went to a size 8, but I felt the 8 was a bit too large for the proximal fill and I did not want to cause intraoperative fracture, thus I settled on the 7. At this point, I did trim some of the proximal femur such that the anterior-posterior juan were equal using a saw. I was about a little less than a fingerbreadth above the lesser trochanter. I then exposed the acetabulum and performed a labral excision 360 and began reaming beginning at 50 mm. I went deep in the cup down to the cotyloid fossa and then expanded our reaming up to a size 57. A trial 58 was placed and that felt reasonably snug, thus I thought a 58 Gription cup would be appropriate. After copiously irrigating out the acetabulum, making sure there was no soft tissue debris, the real 58 cup was implanted. However, the 58 cup did not have satisfactory fixation, thus I was not able to utilize that. I felt that I had to expand further, thus I reamed it with a 58-mm reamer, then the 59-mm reamer. We trialed with a 60 and he had better fixation, but I wanted to use a Sector cup in case the fixation was not adequate and I needed good screw fixation supplementally. I then asked for the six piece Sector cup, irrigated out the acetabulum, and placed the cup; however, I still did not get satisfactory fixation, thus I went down to the 57 reamer and then the 58 reamer. I deepened the cup just a bit more. Thus, at this point, I irrigated out the real implant to make sure there is no soft tissue on the domed surface and then reimplanted the 60 Sector cup. This time, the cup seated fully and had excellent fixation, but under an abundance of precaution, I did place one posterior-superior screw. I did this by drilling and measuring at just shy of 20 mm, thus I put a 15-mm screw in and it had excellent purchase. I irrigated out the acetabulum and placed the polyethylene, made sure it seated properly, and then irrigated out femoral canal, placed a #7 broach, trialed with a +1.5 neck length x 40-mm ball. I had excellent stability to flexion and internal rotation, and extension and external rotation, but he needed a little bit more length, thus I trialed with a +5 and this had just very minimal telescoping with a +5, thus, I went with a +5 neck length. I removed all of the trial components and then irrigated out the femoral canal once again, placed the real #7 Lincoln stem, dried the trunnion, placed the 40-mm x +5 ball, and then reduced the hip again. We then copiously irrigated out the hip joint again, as I did several times throughout the surgery, closed the anterior hip capsule and gluteus minimus back anatomically with interrupted #1 PDS sutures. We then closed the gluteus medius back with interrupted #1 PDS sutures, irrigated in between layers, placed tranexamic acid in the depths of the wound. I then closed the tensor fascia with a combination of #1 PDS suture and a running #1 Stratafix, irrigating the deep subdermal tissues and closed in layers with 2-0 PDS, and then skin with navi covered by an Optifoam dressing. He was then transferred to his bed and then to the recovery room in stable condition. There were no intraoperative complications. Eloise Novak PA-C was critical for the success of this very difficult operation on this very large individual. He helped with soft tissue manipulation as needed, helped to reduce and dislocate the hip several times throughout the surgery, helped in placing of the leg bag anteriorly, helped to close the wound, helped to prepare the patient, amongst many other tasks to allow me to perform the operation smoothly, sufficiently, and safely. [facility]
--- NOTE | 2020-04-01 11:13 | HPE ---
HISTORY AND PHYSICAL DATE OF ANTICIPATED ADMISSION: 04/01/2020 CHIEF COMPLAINT: Right hip pain. ATTENDING PHYSICIAN: Shamar Kelly M.D. HISTORY OF PRESENT ILLNESS: Mr. Lanier is a pleasant 79-year-old male with progressively worsening right hip pain and stiffness. He has failed to improve with conservative treatment. He has elected for surgery for his continued symptoms. He has pain with weightbearing activities and his activities of daily living. X-rays of his hip are notable for advanced osteoarthritis of the right hip joint. He has consented for a right total hip arthroplasty by Dr. Shamar Kelly. Medical optimization was performed by Geno Denton. PAST MEDICAL HISTORY: High blood pressure, heart disease and hypercholesterolemia. PAST SURGICAL HISTORY: Includes AAA, three hernias, knee replacement and left hip replacement. ALLERGIES: No known drug allergies. CURRENT MEDICATIONS: 1. Metoprolol. 2. Atorvastatin. 3. Spironolactone. 4. Furosemide. SOCIAL HISTORY: This gentleman does not smoke or drink. He is retired. FAMILY HISTORY: Noncontributory. REVIEW OF SYSTEMS: This patient denies chest pain, heart palpitations, cough, wheezing, difficulty breathing and shortness of breath. He denies abdominal pain, nausea, vomiting, diarrhea or constipation. He denies recent upper respiratory infection or urinary tract infection symptoms. He does complain of persistent pain in his right hip. PHYSICAL EXAMINATION: GENERAL: He is a well-nourished, well developed, in no acute distress, alert male patient. He ambulates with a moderate limp, favoring the right lower extremity. He does use a walker. VITAL SIGNS: He is 5' 4-1/2" tall, weighs 233.2 pounds, temperature 96.9, blood pressure 120/70, pulse 71 and respirations 18. NECK: Supple without adenopathy or jugular venous distention. LUNGS: Clear to auscultation, without rales or wheeze. HEART: Regular rate and rhythm. ABDOMEN: Bowel sounds were present. EXTREMITIES: Examination of the hip revealed intact skin. He had decreased range of motion due to pain and stiffness. The limb is neurovascularly intact. IMAGING: Chest x-ray showed chronic appearing changes, no acute cardiopulmonary disease processes. EKG done 03/21/2020 shows normal sinus rhythm at 61 beats per minute. LABORATORY DATA: ProTime 12.6, INR 0.92. CBC showed hemoglobin 13.3, hematocrit 41.5, MCH 26.9; otherwise within normal limits. Sed rate 43. Glucose 97, BUN 27, creatinine 1.19, sodium 138, potassium 4.5. IMPRESSION: Symptomatic osteoarthritis of the right hip joint. PLAN: Consented for a right total hip arthroplasty by Dr. Shamar Kelly. It is important to note that Mr. Lanier underwent brain surgery since his last hip replacement. He has a metallic shunt in one of the ventricles of the brain, that is magnetic and he has the information concerning the stent and will bring it the day of surgery.
[2020-04-01] MEDS ORDERED: MORPHINE 2 MG/ML 1ML VIAL (J2270) IV PRN ×2 (11:15→12:15)
[2020-04-01] MEDS ORDERED: METOCLOPRAMIDE INJ 10MG/2ML VIAL (J2765 PER 1) IV PRN (11:15)
[2020-04-01] MEDS ORDERED: LR 1,000 ML IV SCH (11:15)
[2020-04-01] MEDS ORDERED: ONDANSETRON 4MG/2ML VIAL IV PRN ×2 (11:15→12:15)
[2020-04-01] MEDS ORDERED: fentaNYL 100 MCG/2 ML INJECTION (J3010) IV PRN (11:15)
[2020-04-01] MEDS ORDERED: oxyCODONE 5MG TAB PO PRN (11:15)
[2020-04-01 11:30] VITALS: BP 146/85
[2020-04-01 12:00] VITALS: BP 144/83
[2020-04-01] MEDS ORDERED: MORPHINE 4 MG/ML 1ML VIAL/SYRINGE (J2270) IV PRN (12:15)
[2020-04-01] MEDS ORDERED: ACETAMINOPHEN TAB 650MG DOSE (2X325MG) PO PRN (12:15)
[2020-04-01] MEDS ORDERED: PERCOCET 5MG/325MG TAB PO PRN ×3 (12:15→14:45)
[2020-04-01 13:00] VITALS: BP 139/87
[2020-04-01] MEDS: LR 1,000 ML IV SCH ×2 (13:35→22:15)
[2020-04-01 14:00] VITALS: BP 141/85
[2020-04-01 15:00] VITALS: BP 154/82
--- NOTE | 2020-04-01 15:34 | IPNPDOC ---
Text Note Date of Service The patient was seen on 04/01/20. NOTE Subjective: Patient seen and examined at bedside. Patient has no medical complaints other than some hip pain. Denies shortness of breath, headaches, chest pain, abdominal pain, nausea, vomiting, diarrhea. Objective: General: NAD, sitting comfortably in chair, in good spirits HEENT:NC/AT Lungs: CTA B/L Heart: +S1S2, RRR Abd: soft, NT, +BS, obese Ext: no edema A/P: 79 year old POD #0 for right total hip arthroplasty, with PMHx HTN, AAA/repair and DLP. #right CANDIS - as per primary team - orthopedics #HTN - continue home medications - beta carlos eduardo, holding aldactone, lasix #AAA - s/p repair at [facility] - continue home medications - beta carlos eduardo #DLP - continue home medications - atorvastatin #DVT prophylaxis - as per ortho VS,Fishbone, I+O VS, Fishbone, I+O Vital Signs Date Time Temp Pulse Resp B/P (MAP) Pulse Ox O2 Delivery O2 Flow Rate FiO2 04/01/20 14:05 17 04/01/20 13:00 95.9 64 139/87 (104) 94 Room Air NELL ZAYAS MD Apr 01, 2020 15:34
[2020-04-01] MEDS: ceFAZolin SOD 2 GM in IV 1 EA IV SCH (16:23)
[2020-04-01] MEDS: METOPROLOL TART 25 MG TABLET PO SCH ×2 (17:47→20:35)
[2020-04-01] MEDS: PERCOCET 5MG/325MG TAB PO PRN ×2 (17:48→22:19)
[2020-04-01 20:22] VITALS: BP 148/85
[2020-04-01] MEDS: ASPIRIN 81 MG ENTERIC TAB PO SCH (20:35)
[2020-04-01] MEDS ORDERED: RAMELTEON 8 MG TAB (ROZEREM) PO PRN (21:30)
[2020-04-02] MEDS: ceFAZolin SOD 2 GM in IV 1 EA IV SCH ×2 (00:09→08:18)
[2020-04-02 02:19] VITALS: BP 140/85
[2020-04-02] MEDS: PERCOCET 5MG/325MG TAB PO PRN ×3 (02:24→11:24)
[2020-04-02 06:00] VITALS: BP 153/81
[2020-04-02] MEDS ORDERED: PERC5TAB12 PO (06:19)
[2020-04-02] MEDS ORDERED: ECOT81TA5 PO (06:19)
[2020-04-02 06:41] LABS: HEMATOCRIT 35.4 % (42.0-52.0); MEAN CORPUSCULAR HEMOGLOBIN 26.4 pg (27.0-33.0); MEAN CORPUSCULAR HGB CONC 31.1 g/dl (32.0-36.5); MEAN CORPUSCULAR VOLUME 84.9 fl (80.0-96.0); PLATELET COUNT, AUTOMATED 191 10^3/uL (150-450); RED BLOOD COUNT 4.17 10^6/uL (4.30-6.10); WHITE BLOOD COUNT 6.9 10^3/uL (4.0-10.0)
[2020-04-02 07:09] LABS: ALBUMIN 3.1 GM/DL (3.2-5.2); ALT/SGPT 20 U/L (12-78); BILIRUBIN,TOTAL 0.4 MG/DL (0.2-1.0); BLOOD UREA NITROGEN 26 MG/DL (7-18); CALCIUM LEVEL 8.4 MG/DL (8.8-10.2); CARBON DIOXIDE LEVEL 30 MEQ/L (21-32); CHLORIDE LEVEL 101 MEQ/L (98-107); CREATININE FOR GFR 1.14 MG/DL (0.70-1.30); GLOMERULAR FILTRATION RATE > 60.0 (>42); GLUCOSE, FASTING 119 MG/DL (70-100); POTASSIUM SERUM 4.7 MEQ/L (3.5-5.1); SODIUM LEVEL 136 MEQ/L (136-145); TOTAL PROTEIN 5.9 GM/DL (6.4-8.2)
[2020-04-02] MEDS: MULTIVITAMINS/MINERALS THERAP 1 TAB PO SCH (08:17)
[2020-04-02] MEDS: MIRALAX *UNIT DOSE* 17GM PACKET PO SCH (08:17)
[2020-04-02] MEDS: ASPIRIN 81 MG ENTERIC TAB PO SCH ×2 (08:17→20:37)
[2020-04-02] MEDS: MOM 30ML SUSPENSION UDC PO SCH (08:17)
[2020-04-02] MEDS: ATORVASTATIN 20 MG TAB PO SCH (08:17)
[2020-04-02] MEDS: METOPROLOL TART 25 MG TABLET PO SCH ×3 (08:18→20:37)
[2020-04-02 10:00] VITALS: BP 149/83
[2020-04-02] MEDS ORDERED: MORP15TASA PO (13:08)
[2020-04-02] MEDS: MORPHINE 15 MG SA TAB PO SCH ×2 (13:19→20:38)
[2020-04-02 14:00] VITALS: BP 143/82
[2020-04-02 20:35] VITALS: BP 148/84
--- NOTE | 2020-04-02 20:59 | IPNPDOC ---
Date Seen The patient was seen on 04/02/20. Progress Note SUBJECTIVE: PT: Patient would benefit from another 1-2 sessions before going home; anticipate D/C tomorrow. Hip pain slightly better today. Denies shortness of breath, headaches, chest pain, abdominal pain, nausea, vomiting, diarrhea. OBJECTIVE: PHYSICAL EXAM: VS: Please see below GENERAL: NAD, sitting comfortably up in bed HEENT:NC/AT PULM: CTA B/L CVS: +S1S2, RRR GI: soft, NT, +BS, obese EXT: RLE slightly swollen compared with left, incision appears clean, nonsuppurative PSYCH: mood and affect normal ASSESSMENT: 79 year old ith PMH HTN, AAA/repair and HLD POD #1 for right total hip arthroplasty. PLAN: #Right CANDIS -Pain better controlled today -PT: Patient would benefit from another 1-2 sessions before going home; anticipate D/C tomorrow -F/u primary team, ortho recommendations #HTN -C/w beta carlos eduardo, holding aldactone, lasix #AAA -s/p repair at [facility] [place] -C/w beta carlos eduardo #DLP -C/w atorvastatin #DVT prophylaxis - ASA BID VS, I&O, 24H, Fishbone Vital Signs/I&O Vital Signs Date Time Temp Pulse Resp B/P (MAP) Pulse Ox O2 Delivery O2 Flow Rate FiO2 04/02/20 20:38 71 18 93 Room Air 04/02/20 20:37 148/84 04/02/20 20:35 98.5 I&O- Last 24 Hours up to 6 AM 04/02/20 05:59 Intake Total 3290 ml Output Total 1150 ml Balance 2140 ml Laboratory Data 24H LABS Laboratory Tests 2 04/02/20 06:34: Nucleated Red Blood Cells % (auto) 0.0, Anion Gap 5L, Glomerular Filtration Rate > 60.0, Calcium Level 8.4L, Total Bilirubin 0.4, Aspartate Amino Transf (AST/SGOT) 25, Alanine Aminotransferase (ALT/SGPT) 20, Alkaline Phosphatase 119H, Total Protein 5.9L, Albumin 3.1L, Albumin/Globulin Ratio 1.1 04/02/20 09:36: Methicillin-Resist S.aureus DNA PCR NOT DETECTED CBC/BMP Laboratory Tests 04/02/20 06:34 Current Medications Current Medications Medications (Trade) Dose Ordered Sig/Omar Route PRN Reason Start Time Stop Time Status Last Admin Dose Admin Acetaminophen (Tylenol Tab) 650 mg Q4HP PRN PO TEMP AND PAIN LEVEL 1-4 04/01/20 12:15 Aspirin (Ecotrin) 81 mg BID PO 04/01/20 21:00 04/02/20 20:37 Atorvastatin Calcium (Lipitor) 80 mg DAILY PO 04/02/20 09:00 04/02/20 08:17 Cefazolin Sodium/ Dextrose 2 gm/IV Miscellaneous Supplies 50 ml @ 75 mls/hr Q8H IV 04/01/20 16:00 04/02/20 08:39 DC 04/02/20 08:18 Fentanyl Citrate (Sublimaze) 25 mcg Q5MP PRN IV PAIN LEVEL 5-10 04/01/20 11:15 04/01/20 12:16 DC Lactated Ringer's 1,000 ml @ 50 mls/hr Q20H IV 04/01/20 11:15 04/01/20 12:16 DC Lactated Ringer's 1,000 ml @ 100 mls/hr Q10H IV 04/01/20 12:15 04/02/20 05:53 DC 04/01/20 13:35 Magnesium Hydroxide (Milk Of Magnesia) 30 ml DAILY PO 04/02/20 09:00 04/02/20 08:17 Metoclopramide HCl (REGLAN INJection) 10 mg Q6HP PRN IV NAUSEA OR VOMITING 04/01/20 11:15 04/01/20 12:16 DC Metoprolol Tartrate (Lopressor) 25 mg TID PO 04/01/20 16:00 04/02/20 20:37 Morphine Sulfate (Morphine Sulfate Inj) 2 mg Q2H PRN IV PAIN LEVEL 5-7 04/01/20 12:15 04/02/20 05:53 DC Morphine Sulfate (Morphine Sulfate Inj) 2 mg Q5MP PRN IV PAIN LEVEL 4-7 04/01/20 11:15 04/01/20 12:16 DC Morphine Sulfate (Morphine Sulfate Inj) 3 mg Q2H PRN IV PAIN LEVEL 8-10 04/01/20 12:15 04/02/20 05:53 DC Morphine Sulfate (Ms Contin) 15 mg BID PO 04/02/20 13:15 04/02/20 20:38 Multivitamins (Theragram-M) 1 tab DAILY PO 04/02/20 09:00 04/02/20 08:17 Ondansetron HCl (ZOFRAN INJection) 4 mg Q4HP PRN IV NAUSEA OR VOMITING 04/01/20 11:15 04/01/20 12:16 DC Ondansetron HCl (ZOFRAN INJection) 4 mg Q6H PRN IV NAUSEA 04/01/20 12:15 Oxycodone HCl (Roxicodone, Oxyir) 5 mg ASDIRECTED PRN PO PAIN LEVEL 1-4 04/01/20 11:15 04/01/20 12:16 DC Oxycodone/ Acetaminophen (Percocet 5mg/ 325mg Tablet) 1 tab Q4H PRN PO PAIN LEVEL 5-7 04/01/20 14:45 Oxycodone/ Acetaminophen (Percocet 5mg/ 325mg Tablet) 1 tab Q6H PRN PO PAIN LEVEL 5-7 04/01/20 12:15 04/01/20 14:46 DC Oxycodone/ Acetaminophen (Percocet 5mg/ 325mg Tablet) 2 tab Q4H PRN PO PAIN LEVEL 8-10 04/01/20 14:45 04/02/20 11:24 Oxycodone/ Acetaminophen (Percocet 5mg/ 325mg Tablet) 2 tab Q6H PRN PO PAIN LEVEL 8-10 04/01/20 12:15 04/01/20 14:46 DC 04/01/20 13:35 Polyethylene Glycol (Miralax) 1 pkt DAILY PO 04/02/20 09:00 04/02/20 08:17 Ramelteon (Rozerem) 8 mg QHS PRN PO INSOMNIA 04/01/20 21:30 04/02/20 20:37 Allergies Coded Allergies: No Known Allergies (Unverified , 03/25/20) Janelle Solis MD Apr 02, 2020 20:58
[2020-04-03] MEDS: PERCOCET 5MG/325MG TAB PO PRN (03:26)
[2020-04-03 06:00] VITALS: BP 151/85
[2020-04-03 08:09] VITALS: BP 137/74
[2020-04-03] MEDS: MIRALAX *UNIT DOSE* 17GM PACKET PO SCH (08:09)
[2020-04-03] MEDS: ASPIRIN 81 MG ENTERIC TAB PO SCH (08:09)
[2020-04-03] MEDS: METOPROLOL TART 25 MG TABLET PO SCH (08:09)
[2020-04-03] MEDS: MOM 30ML SUSPENSION UDC PO SCH (08:09)
[2020-04-03] MEDS: MULTIVITAMINS/MINERALS THERAP 1 TAB PO SCH (08:09)
[2020-04-03] MEDS: ATORVASTATIN 20 MG TAB PO SCH (08:09)
[2020-04-03] MEDS: MORPHINE 15 MG SA TAB PO SCH (08:10)
[2020-04-03 08:57] LABS: HEMATOCRIT 33.4 % (42.0-52.0); HEMOGLOBIN 10.7 g/dl (13.5-17.5); MEAN CORPUSCULAR HEMOGLOBIN 27.2 pg (27.0-33.0); MEAN CORPUSCULAR VOLUME 84.8 fl (80.0-96.0); PLATELET COUNT, AUTOMATED 200 10^3/uL (150-450); RED BLOOD COUNT 3.94 10^6/uL (4.30-6.10); WHITE BLOOD COUNT 7.8 10^3/uL (4.0-10.0)
[2020-04-03 09:35] LABS: BILIRUBIN,TOTAL 0.8 MG/DL (0.2-1.0); CALCIUM LEVEL 8.5 MG/DL (8.8-10.2); CREATININE FOR GFR 1.29 MG/DL (0.70-1.30); GLOMERULAR FILTRATION RATE 57.3 (>42); POTASSIUM SERUM 4.3 MEQ/L (3.5-5.1)
== END 2020-04-03 10:30 | disposition home or self-care (01) | DRG 470 ==
LOC: M OR 06:07 → EEVIPCON 06:07 → M MS5PR 11:15
PROVIDERS: ADMIT Orthopaedic Surgery; ATTEND Orthopaedic Surgery
PROC: 0SR90JA Replacement of Right Hip Joint with Synthetic Substitute, Uncemented, Open Approach (ICD-10-PCS; principal; 2020-04-01 07:30)
DX: M16.11 Unilateral primary osteoarthritis, right hip (principal); I10 Essential (primary) hypertension; Z79.899 Other long term (current) drug therapy; Z96.642 Presence of left artificial hip joint; Z96.649 Presence of unspecified artificial hip joint

== ENCOUNTER → 2020-05-31 | Outpatient (CLI) | payer MEDICARE, OTHER ==
[~2020-05-31] MED LIST changes: +ECOT81TA5 PO; +ISOVUE-370 76% 100ML VIAL As Ordered ONE; +LISI10TA22 PO; -LISI10TA4 PO; +MORP15TASA PO
--- NOTE | 2020-05-31 16:17 | REP ---
INDICATION: OCCLUSION AND STENOSIS OF BILATERAL CAROTID ARTERIES COMPARISON: Comparison CT brain study done January 25, 2020. No comparison CT angiography. TECHNIQUE: Contrast enhancement dose is 100 mL of intravenous Isovue 370. Helical scanning is acquired. 2 mm axial images are re-formatted. Coronal and sagittal MPR images are generated. Coronal and sagittal MIP and oblique MPR images are generated. 3D surface rendered images are generated and viewed rotationally. FINDINGS: There is moderate CT and mixed plaquing in the aortic arch. Great vessel origins appear patent. There is poor opacification of the left common carotid artery consistent with complete occlusion. There is flow visible in the branches of the external carotid artery but the left distal common and left internal carotid artery appear to be occluded. There is heavy calcific plaquing at the carotid bifurcation on the left. On the right common carotid artery is widely patent. Calcific plaquing is observed in there is a high-grade focal stenosis at the origin of the internal carotid artery, approximately 70%. The cervical segment of the right internal carotid artery is somewhat tortuous but widely patent. The vertebral arteries are patent bilaterally right is a little smaller than left. Study is otherwise unremarkable. IMPRESSION: 1. 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 2. High-grade, approximately 70%, stenosis focally at the origin of the internal carotid artery on the right. <Electronically signed by Walt Rubin > 05/31/20 [id number]
--- NOTE | 2020-05-31 16:20 | REP ---
INDICATION: OCCLUSION AND STENOSIS OF BILATERAL CAROTID ARTERIES. COMPARISON: None. TECHNIQUE: CT contrast dose: 100 ml of intravenous Isovue 370. CT technique: Helical scanning is acquired. 2 mm axial images are reformatted. Maximal intensity projection and multiplanar re-formation images are generated along with 3-D surface rendered color imaging which is viewed rotational. FINDINGS: The distal vertebral arteries are patent, right is a little smaller than left. Basilar artery is widely patent. Posterior cerebral and superior cerebellar vessels are unremarkable. The distal internal carotid artery on the right is widely patent. The distal internal carotid artery on the left is occluded. There is calcific plaquing in the carotid siphons bilaterally but no stenosis is seen on the right. On the left, the anterior communicator and A1 segment are patent opacifying the left middle cerebral artery and both in anterior cerebral arteries. The right middle cerebral artery branches are unremarkable. The dural sinuses appear intact. There is a right-sided ventriculoperitoneal shunt catheter noted. No arteaga aneurysm or arteriovenous malformation is seen. IMPRESSION: Occluded left ICA. Vascular calcification in the carotid siphon regions bilaterally. Right-sided ventriculostomy tube. <Electronically signed by Walt Rubin > 05/31/20 [id number]
== END ==
LOC: M RAD 14:20
PROVIDERS: ATTEND Physician Assistant
DX: I65.23 Occlusion and stenosis of bilateral carotid arteries (principal)
CPT/HCPCS: 70496; 70498; Q9967

== ENCOUNTER → 2020-08-03 | Outpatient (CLI) | payer MEDICARE, OTHER ==
[~2020-08-03] MED LIST changes: -ISOVUE-370 76% 100ML VIAL As Ordered ONE
--- NOTE | 2020-08-05 09:29 | REP ---
INDICATION: HYDROCEPHALUS. COMPARISON: 01/25/2020 and 11/16/2019 TECHNIQUE: 4.5 mm contiguous transaxial sections were obtained from the skull base to the cerebral convexities with thin cuts through the posterior fossa without the administration of intravenous contrast. FINDINGS: The ventricles and sulci are consistent with the patient's age. Once again, there is been a decrease in size in the ventricles compared to the prior exam, that prior exam showed a decrease in the size of the ventricles compared to an older exam of 11/16/2019. There is no change in appearance of the ventriculoperitoneal shunt catheter. There are no extra-axial fluid collections. There is no mass effect. The deep cerebral white matter is consistent with the patient's age. The orbital and petrous structures, cerebellopontine angles, and posterior fossa are unremarkable. The sella turcica, cavernous, and paracavernous structures are essentially unremarkable. The visualized portions of the paranasal sinuses and mastoid air cells are clear. Images of the skull base show no gross abnormality. IMPRESSION: No acute intracranial pathology. Findings as described above. <Electronically signed by Usman Curtis > 08/05/20 [id number]
== END ==
LOC: M RAD 12:42
PROVIDERS: ATTEND Neurological Surgery
DX: G91.9 Hydrocephalus, unspecified (principal)

== ENCOUNTER → 2020-09-09 | Outpatient (REF) | payer MEDICARE, OTHER | LOC: M SFHCCAPE 09:55 | PROVIDERS: ATTEND Urology | DX: C61 Malignant neoplasm of prostate (principal) ==

== ENCOUNTER → 2020-11-28 | Outpatient (REF) | payer MEDICARE, OTHER ==
[2020-11-28 15:52] LABS: BASO % 0.6 % (0.0-1.0); EOS # 0.3 10^3/uL (0.0-0.5); EOS % 4.3 % (0.0-3.0); HEMATOCRIT 40.3 % (42.0-52.0); HEMOGLOBIN 12.9 g/dl (13.5-17.5); LYMPH # 1.1 10^3/uL (1.5-5.0); LYMPH % 17.6 % (24.0-44.0); MEAN CORPUSCULAR HEMOGLOBIN 26.8 pg (27.0-33.0); MEAN CORPUSCULAR VOLUME 83.8 fl (80.0-96.0); MONO # 0.8 10^3/uL (0.0-0.8); NEUTROPHILS % 64.2 % (36.0-66.0); PLATELET COUNT, AUTOMATED 266 10^3/uL (150-450); RED BLOOD COUNT 4.81 10^6/uL (4.30-6.10); WHITE BLOOD COUNT 6.3 10^3/uL (4.0-10.0)
[2020-11-28 16:05] LABS: HEMOGLOBIN A1c 6.1 %
[2020-11-28 16:27] LABS: ALBUMIN 3.5 GM/DL (3.2-5.2); BILIRUBIN,TOTAL 0.7 MG/DL (0.2-1.0); CHOLESTEROL RISK RATIO 4.409 (<5); CREATININE FOR GFR 1.26 MG/DL (0.70-1.30); GLOMERULAR FILTRATION RATE 58.8 (>42); POTASSIUM SERUM 4.3 MEQ/L (3.5-5.1); THYROID STIMULATING HORMONE 1.8 uIU/ML (0.358-3.740); TOTAL 25(OH) VITAMIN D 32.4 NG/ML (30.0-100.0); TOTAL PROTEIN 7.1 GM/DL (6.4-8.2)
== END ==
LOC: M SFHCCAPE 07:56
PROVIDERS: ATTEND Physician Assistant
DX: R73.09 Other abnormal glucose (principal); I10 Essential (primary) hypertension; Z79.82 Long term (current) use of aspirin; Z79.891 Long term (current) use of opiate analgesic

== ENCOUNTER → 2020-11-29 | Outpatient (REF) | payer MEDICARE, OTHER ==
[2020-11-29 16:07] LABS: APPEARANCE, URINE CLEAR (CLEAR); BACTERIA, URINE AUTO NEGATIVE (NEGATIVE); BILIRUBIN, URINE AUTO NEGATIVE (NEGATIVE); BLOOD, URINE BLOOD NEGATIVE (NEGATIVE); COLOR, URINE YELLOW (YELLOW); GLUCOSE, URINE (UA) AUTO NEGATIVE (NEGATIVE); KETONE, URINE AUTO NEGATIVE (NEGATIVE); LEUKOCYTE ESTERASE, URINE AUTO NEGATIVE (NEGATIVE); MUCUS, URINE SMALL (NEGATIVE); NITRITE, URINE AUTO NEGATIVE (NEGATIVE); PROTEIN, URINE AUTO NEGATIVE (NEGATIVE); RBC, URINE AUTO 0 /HPF (0-3); SPECIFIC GRAVITY URINE AUTO 1.009 (1.002-1.035); SQUAMOUS EPITHELIAL CELL UR AU 0 /HPF (0-6); UROBILINOGEN, URINE AUTO 0.2 mg/dL (0.0-2.0); WBC, URINE AUTO 0 /HPF (0-3)
== END ==
LOC: M SFHCCAPE 12:01
PROVIDERS: ATTEND Physician Assistant
DX: I10 Essential (primary) hypertension (principal)

== ENCOUNTER → 2020-12-04 | Outpatient (REF) | payer MEDICARE, OTHER | LOC: M SFHCCAPE 16:19 | PROVIDERS: ATTEND Physician Assistant | DX: Z53.9 Procedure and treatment not carried out, unspecified reason (principal) ==

== ENCOUNTER → 2020-12-05 | Outpatient (REF) | payer MEDICARE, OTHER | LOC: M SFHCCAPE 13:25 | PROVIDERS: ATTEND Physician Assistant | DX: R74.8 Abnormal levels of other serum enzymes (principal) ==

== ENCOUNTER → 2021-03-17 | Outpatient (CLI) | payer MEDICARE, OTHER | LOC: M RAD 13:40 | PROVIDERS: ATTEND Surgery Vascular Surgery | DX: I65.23 Occlusion and stenosis of bilateral carotid arteries (principal) ==

== ENCOUNTER → 2021-07-22 | Outpatient (CLI) | payer MEDICARE, OTHER | LOC: M RAD 12:46 | PROVIDERS: ATTEND Neurological Surgery | DX: G91.2 (Idiopathic) normal pressure hydrocephalus (principal) ==

== ENCOUNTER → 2021-08-05 | Outpatient (CLI) | payer MEDICARE, OTHER | LOC: M RAD 08:51 | PROVIDERS: ATTEND Physician Assistant | DX: I71.3 Abdominal aortic aneurysm, ruptured (principal); I65.23 Occlusion and stenosis of bilateral carotid arteries ==

== ENCOUNTER → 2021-09-03 | Outpatient (REF) | payer MEDICARE, OTHER ==
[2021-09-03 16:32] LABS: BASO # 0.1 10^3/uL (0.0-0.2); BASO % 0.7 % (0.0-1.0); EOS # 0.3 10^3/uL (0.0-0.5); EOS % 4.2 % (0.0-3.0); HEMATOCRIT 41.4 % (42.0-52.0); HEMOGLOBIN 13.3 g/dl (13.5-17.5); LYMPH % 14.5 % (24.0-44.0); MEAN CORPUSCULAR HEMOGLOBIN 27.1 pg (27.0-33.0); MEAN CORPUSCULAR HGB CONC 32.1 g/dl (32.0-36.5); MEAN CORPUSCULAR VOLUME 84.5 fl (80.0-96.0); MONO # 0.7 10^3/uL (0.0-0.8); MONO % 10.5 % (2.0-8.0); NEUTROPHILS # 4.6 10^3/uL (1.5-8.5); NEUTROPHILS % 68.5 % (36.0-66.0); PLATELET COUNT, AUTOMATED 273 10^3/uL (150-450); WHITE BLOOD COUNT 6.7 10^3/uL (4.0-10.0)
[2021-09-03 17:25] LABS: ALBUMIN 3.6 GM/DL (3.2-5.2); ALT/SGPT 21 U/L (12-78); BILIRUBIN,TOTAL 0.6 MG/DL (0.2-1.0); BLOOD UREA NITROGEN 20 MG/DL (7-18); C REACTIVE PROTEIN QUANTITATIV 1.83 MG/DL (0.00-0.30); CALCIUM LEVEL 8.9 MG/DL (8.8-10.2); CARBON DIOXIDE LEVEL 26 MEQ/L (21-32); CHLORIDE LEVEL 103 MEQ/L (98-107); CHOLESTEROL LEVEL 165 MG/DL (<200); CHOLESTEROL RISK RATIO 3.837 (<5); CREATININE FOR GFR 1.41 MG/DL (0.70-1.30); FERRITIN 83 NG/ML (26-388); FOLATE > 24.0 NG/ML; GLOMERULAR FILTRATION RATE 51.5 (>35); GLUCOSE, FASTING 94 MG/DL (70-100); HDL CHOLESTEROL 43 MG/DL (>40); IRON (FE) 84 UG/DL (65-175); LDL CHOLESTEROL 81 MG/DL (<100); NON-HDL-C 122 MG/DL; PERCENT SATURATION 31.6 % (19.7-50.0); POTASSIUM SERUM 4.6 MEQ/L (3.5-5.1); RHEUMATOID FACTOR QUANT 17.6 IU/ML (<15.0); SODIUM LEVEL 137 MEQ/L (136-145); TOTAL IRON BINDING CAPACITY 266 UG/DL (250-450); TOTAL PROTEIN 7.3 GM/DL (6.4-8.2); TRIGLYCERIDES LEVEL 203 MG/DL (<150); VITAMIN B12 LEVEL 576 PG/ML
[2021-09-03 18:00] LABS: ERYTHROCYTE SEDIMENTATION RATE 46 mm/hr (0-20)
[2021-09-03 18:04] LABS: HEMOGLOBIN A1c 6.2 %
[2021-09-03 18:21] LABS: STABLE ALKPHOS 106 U/L
[2021-09-03 18:22] LABS: % LABILE ALKALINE PHOSPHATASE 24 %; LABILE ALKPHOS 34 U/L
[2021-09-06 00:07] LABS: ANA (HEP2) Negative (.); CYCLIC CITRULLINATED PEPTIDE 5 units (0-19)
== END ==
LOC: M SFHCCAPE 07:31
PROVIDERS: ATTEND Urology
DX: C61 Malignant neoplasm of prostate (principal); R73.01 Impaired fasting glucose; R74.8 Abnormal levels of other serum enzymes; D64.9 Anemia, unspecified; E76.8 Other disorders of glucosaminoglycan metabolism

== ENCOUNTER → 2022-04-02 | Outpatient (REF) | payer MEDICARE, OTHER ==
[2022-04-02 17:40] LABS: BASO % 0.5 % (0.0-1.0); EOS # 0.5 10^3/uL (0.0-0.5); HEMATOCRIT 43.7 % (42.0-52.0); HEMOGLOBIN 14.1 g/dl (13.5-17.5); LYMPH # 1.1 10^3/uL (1.5-5.0); LYMPH % 14.1 % (24.0-44.0); MEAN CORPUSCULAR HEMOGLOBIN 26.8 pg (27.0-33.0); MEAN CORPUSCULAR HGB CONC 32.3 g/dl (32.0-36.5); MEAN CORPUSCULAR VOLUME 83.1 fl (80.0-96.0); MONO # 0.8 10^3/uL (0.0-0.8); NEUTROPHILS # 5.5 10^3/uL (1.5-8.5); NEUTROPHILS % 68.3 % (36.0-66.0); PLATELET COUNT, AUTOMATED 274 10^3/uL (150-450); RED BLOOD COUNT 5.26 10^6/uL (4.30-6.10)
[2022-04-02 17:48] LABS: HEMOGLOBIN A1c 5.9 % (4.0-6.0)
[2022-04-02 18:06] LABS: PROSTATIC SPECIFIC AG MONITOR 0.36 NG/ML (< 4.00)
[2022-04-02 18:10] LABS: ALBUMIN 3.9 G/DL (3.2-5.2); BILIRUBIN,TOTAL 0.8 MG/DL (0.3-1.2); CALCIUM LEVEL 9.3 MG/DL (8.3-10.6); CHOLESTEROL RISK RATIO 3.29 (<5); CREATININE FOR GFR 1.49 MG/DL (0.70-1.30); GLOMERULAR FILTRATION RATE 48.3 (>35); HDL CHOLESTEROL 47.4 MG/DL (>40); LDL CHOLESTEROL 73.8 MG/DL (<100); THYROID STIMULATING HORMONE 2.582 uIU/ML (0.55-4.78); TOTAL 25(OH) VITAMIN D 35.1 NG/ML (20.0-100.0); TOTAL PROTEIN 7.2 G/DL (5.7-8.2)
== END ==
LOC: M SFHCCAPE 08:15
PROVIDERS: ATTEND Physician Assistant
DX: E78.5 Hyperlipidemia, unspecified (principal); I10 Essential (primary) hypertension; R76.8 Other specified abnormal immunological findings in serum; C61 Malignant neoplasm of prostate; Z79.899 Other long term (current) drug therapy

== ENCOUNTER → 2022-06-01 | Outpatient (REF) | payer MEDICARE, OTHER ==
[2022-06-01 18:39] LABS: CALCIUM LEVEL 9.2 MG/DL (8.3-10.6); CREATININE FOR GFR 1.27 MG/DL (0.70-1.30); GLOMERULAR FILTRATION RATE 57.9 (>35); POTASSIUM SERUM 4.7 MMOL/L (3.5-5.1)
== END ==
LOC: M SFHCCAPE 11:58
PROVIDERS: ATTEND Physician Assistant
DX: I10 Essential (primary) hypertension (principal)

== ENCOUNTER → 2022-09-11 | Outpatient (CLI) | payer MEDICARE, OTHER | LOC: M RAD 12:29 | PROVIDERS: ATTEND Neurological Surgery | DX: G91.2 (Idiopathic) normal pressure hydrocephalus (principal) ==

== ENCOUNTER → 2022-11-09 | Outpatient (REF) | payer MEDICARE, OTHER | LOC: M SFHCCAPE 10:47 | PROVIDERS: ATTEND Urology | DX: C61 Malignant neoplasm of prostate (principal) ==

== ENCOUNTER → 2022-12-01 | Outpatient (CLI) | payer MEDICARE, OTHER | LOC: M CLY 10:58 | PROVIDERS: ATTEND Physician Assistant Medical | DX: R06.02 Shortness of breath (principal) ==

== ENCOUNTER → 2023-01-14 | Outpatient (CLI) | payer MEDICARE, OTHER | LOC: M RAD 10:18 | PROVIDERS: ATTEND Physician Assistant | DX: I65.23 Occlusion and stenosis of bilateral carotid arteries (principal) ==

== ENCOUNTER → 2023-02-04 | Outpatient (REF) | payer MEDICARE, OTHER ==
[2023-02-04 18:41] LABS: BLOOD UREA NITROGEN 27 MG/DL (9-23); CREATININE FOR GFR 1.23 MG/DL (0.70-1.30); GLOMERULAR FILTRATION RATE > 60.0 (>35)
== END ==
LOC: M LABDRWCV 17:37
PROVIDERS: ATTEND Physician Assistant
DX: Z01.812 Encounter for preprocedural laboratory examination (principal); I65.23 Occlusion and stenosis of bilateral carotid arteries

== ENCOUNTER → 2023-02-05 | Outpatient (CLI) | payer MEDICARE, OTHER ==
[~2023-02-05] MED LIST changes: +ISOVUE-370 76% 100ML VIAL ONE
== END ==
LOC: M PLAIMG 09:00
PROVIDERS: ATTEND Surgery Vascular Surgery
DX: I65.23 Occlusion and stenosis of bilateral carotid arteries (principal)
CPT/HCPCS: 70496; 70498; Q9967

== ENCOUNTER → 2023-06-02 | Outpatient (REF) | payer MEDICARE, OTHER ==
[~2023-06-02] MED LIST changes: -ISOVUE-370 76% 100ML VIAL ONE
[2023-06-02 18:21] LABS: BASO # 0.1 10^3/uL (0.0-0.2); BASO % 0.9 % (0.0-1.0); EOS # 0.2 10^3/uL (0.0-0.5); EOS % 2.1 % (0.0-3.0); HEMATOCRIT 41.5 % (42.0-52.0); HEMOGLOBIN 13.5 g/dl (13.5-17.5); LYMPH # 1.5 10^3/uL (1.5-5.0); LYMPH % 19.3 % (24.0-44.0); MEAN CORPUSCULAR HEMOGLOBIN 27.6 pg (27.0-33.0); MEAN CORPUSCULAR HGB CONC 32.5 g/dl (32.0-36.5); MEAN CORPUSCULAR VOLUME 84.7 fl (80.0-96.0); MONO # 0.8 10^3/uL (0.0-0.8); MONO % 10.9 % (2.0-8.0); NEUTROPHILS # 4.9 10^3/uL (1.5-8.5); NEUTROPHILS % 64.7 % (36.0-66.0); PLATELET COUNT, AUTOMATED 283 10^3/uL (150-450); WHITE BLOOD COUNT 7.6 10^3/uL (4.0-10.0)
[2023-06-02 18:44] LABS: PROSTATIC SPECIFIC AG MONITOR 0.49 NG/ML (< 4.00)
[2023-06-02 18:46] LABS: ALBUMIN 3.5 G/DL (3.2-5.2); BILIRUBIN,TOTAL 0.7 MG/DL (0.3-1.2); CALCIUM LEVEL 8.4 MG/DL (8.3-10.6); CHOLESTEROL RISK RATIO 3.8 (<5); CREATININE FOR GFR 1.35 MG/DL (0.70-1.30); GLOMERULAR FILTRATION RATE 53.9 (>35); HDL CHOLESTEROL 42.6 MG/DL (>40); LDL CHOLESTEROL 85.4 MG/DL (<100); NON-HDL-C 119.4 MG/DL; POTASSIUM SERUM 4.4 MMOL/L (3.5-5.1); TOTAL PROTEIN 6.8 G/DL (5.7-8.2)
[2023-06-02 18:48] LABS: THYROID STIMULATING HORMONE 1.847 uIU/ML (0.55-4.78)
[2023-06-02 18:58] LABS: HEMOGLOBIN A1c 6.6 % (4.0-6.0)
== END ==
LOC: M SFHCCAPE 07:25
PROVIDERS: ATTEND Physician Assistant Medical
DX: E78.2 Mixed hyperlipidemia (principal); C61 Malignant neoplasm of prostate; I10 Essential (primary) hypertension; Z79.899 Other long term (current) drug therapy

== ENCOUNTER → 2023-09-30 | Outpatient (CLI) | payer MEDICARE, OTHER | LOC: M RAD 10:50 | PROVIDERS: ATTEND Neurological Surgery | DX: G91.2 (Idiopathic) normal pressure hydrocephalus (principal) ==

== ENCOUNTER → 2023-11-25 | Outpatient (REF) | payer MEDICARE ==
[2023-11-25 17:32] LABS: HEMOGLOBIN A1c 6.1 % (4.0-6.0)
[2023-11-25 17:36] LABS: CALCIUM LEVEL 9.3 MG/DL (8.3-10.6); CREATININE FOR GFR 1.47 MG/DL (0.70-1.30); GLOMERULAR FILTRATION RATE 48.8 (>35); POTASSIUM SERUM 4.1 MMOL/L (3.5-5.1)
[2023-11-25 17:37] LABS: PROSTATIC SPECIFIC AG MONITOR 0.56 NG/ML (< 4.00)
== END ==
LOC: M SFHCCAPE 13:55
PROVIDERS: ATTEND Physician Assistant Medical
DX: C61 Malignant neoplasm of prostate (principal); R73.03 Prediabetes; N18.31 Chronic kidney disease, stage 3a

== ENCOUNTER → 2024-06-21 | Outpatient (REF) | payer MEDICARE ==
[2024-06-21 19:44] LABS: PROSTATIC SPECIFIC AG MONITOR 0.5 NG/ML (< 4.00)
[2024-06-21 19:46] LABS: CALCIUM LEVEL 9.7 MG/DL (8.3-10.6); CREATININE FOR GFR 1.63 MG/DL (0.70-1.30); GLOMERULAR FILTRATION RATE 43.2 (>35); POTASSIUM SERUM 4.7 MMOL/L (3.5-5.1)
== END ==
LOC: M SFHCCAPE 07:13
PROVIDERS: ATTEND Physician Assistant Medical
DX: I10 Essential (primary) hypertension (principal); C61 Malignant neoplasm of prostate

== ENCOUNTER → 2024-10-03 | Outpatient (REF) | payer MEDICARE ==
[~2024-10-03] MED LIST changes: +AMLO-751 PO; -AMLO10TA PO; +MORP-138 PO; -MORP15TASA PO
[2024-10-03 19:04] LABS: CALCIUM LEVEL 9.6 MG/DL (8.3-10.6); CARBON DIOXIDE LEVEL 25.0 MMOL/L (20-31); CHLORIDE LEVEL 101.0 MMOL/L (98-107); CREATININE FOR GFR 1.84 MG/DL (0.70-1.30); GLOMERULAR FILTRATION RATE 35.9 (>35); POTASSIUM SERUM 4.5 MMOL/L (3.5-5.1); SODIUM LEVEL 140.0 MMOL/L (136-145)
== END ==
LOC: M SFHCCAPE 07:21
PROVIDERS: ATTEND Physician Assistant Medical
DX: I10 Essential (primary) hypertension (principal)

== ENCOUNTER → 2024-10-31 | Outpatient (CLI) | payer MEDICARE | LOC: M RAD 09:11 | PROVIDERS: ATTEND Physician Assistant Medical | DX: I12.9 Hypertensive chronic kidney disease with stage 1 through stage 4 chronic kidney disease, or unspecified chronic kidney disease (principal); N18.32 Chronic kidney disease, stage 3b; N20.0 Calculus of kidney; N28.1 Cyst of kidney, acquired ==

== ENCOUNTER → 2025-02-12 | Outpatient (REF) | payer MEDICARE ==
[~2025-02-12] MED LIST changes: -IBUP-1022 PO; +IBUP600T42 PO
== END ==
LOC: M SFHCCAPE 07:46
PROVIDERS: ATTEND Urology
DX: C61 Malignant neoplasm of prostate (principal)

== ENCOUNTER → 2025-02-19 | Outpatient (CLI) | payer MEDICARE | LOC: M PLAIMG 09:32 | PROVIDERS: ATTEND Urology | DX: N20.0 Calculus of kidney (principal) ==